=== PATIENT | female | born 1965 | race Asian ===

== ENCOUNTER 2016-05-04 11:47 | Emergency (ER) | payer MEDICAID, MEDICARE, SELFPAY ==
[~2016-05-04] VITALS: Ht 162.6 cm; Wt 65.0 kg
[~2016-05-04 11:47] MED LIST: ALBU8HFA IH; AMLO-512 PO; ARIP400S IM; DIVA500T69 PO; DULO20CA30 PO; FLUT1BLS PO; FOLI1 PO; LISI-661 PO; METF500T4 PO; MONT10TA21 PO; MULT-1238 PO; PANT40TA25 PO; SOLI5 PO; THIA100 PO; TOPI25 PO; ZIPR80CA2 PO
[2016-05-04 12:03] LABS: GLUCOSE,POINT OF CARE 111 MG/DL (70-110)
[2016-05-04 12:43] LABS: BASOPHILS % (AUTO) 0.7 % (0.0-2.0); EOSINOPHILS % (AUTO) 2.7 % (1.0-6.0); HEMATOCRIT 38.9 % (36-46); HEMOGLOBIN 12.9 g/dL (12.0-16.0); LYMPHOCYTES # (AUTO) 3.4 K/uL (1.0-4.8); LYMPHOCYTES % (AUTO) 41.1 % (22.0-44.0); MEAN CORPUSCULAR HEMOGLOBIN 30.6 pg (26.0-34.0); MEAN CORPUSCULAR HGB CONC 33.1 G/dL (31.0-37.0); MEAN CORPUSCULAR VOLUME 92 fL (80-100); MONOCYTES # (AUTO) 0.6 K/uL (0.1-1.0); MONOCYTES % (AUTO) 7.5 % (2.0-9.0); PLATELET COUNT (AUTO) 311 K/uL (150-450); RED CELL DISTRIBUTION WIDTH 14.6 % (11.5-14.5); WHITE BLOOD COUNT (AUTO) 8.2 K/uL (4.5-11.0)
[2016-05-04 12:57] LABS: ANION GAP 8 mmol/L (8-16); CALCIUM, TOTAL 8.8 mg/dL (8.8-10.5); CARBON DIOXIDE 29 mmol/L (22-29); CHLORIDE 104 mmol/L (98-107); CREATININE 0.74 mg/dL (0.60-1.30); GLOMERULAR FILTR. RATE CALC > 60 mL/min (>60); SODIUM SERUM 141 mmol/L (136-145); UREA NITROGEN, BLOOD 14 mg/dL (7-18)
[2016-05-04 13:03] LABS: ALANINE AMINOTRANSFERASE 21 U/L (12-78); ALBUMIN 3.4 g/dL (3.4-5.0); ASPARTATE AMINOTRANSFERASE 18 U/L (15-37); BILIRUBIN,TOTAL 0.4 mg/dL (0.1-1.0); TOTAL PROTEIN, SERUM 7.3 g/dL (6.4-8.2)
[2016-05-04 13:21] LABS: VALPROIC ACID < 3 mcg/mL (50-100)
[2016-05-04 14:50] VITALS: BP 140/74
== END 2016-05-04 14:55 | disposition home or self-care (01) ==
LOC: EMS 11:49
DX: F20.9 Schizophrenia, unspecified (principal); F31.9 Bipolar disorder, unspecified; E11.9 Type 2 diabetes mellitus without complications; I10 Essential (primary) hypertension; F15.10 Other stimulant abuse, uncomplicated; F17.210 Nicotine dependence, cigarettes, uncomplicated; Z88.8 Allergy status to other drugs, medicaments and biological substances
CPT/HCPCS: 36415; 80053; 80164; 80307; 82962; 85025; 99284; G0480

== ENCOUNTER 2016-05-30 00:45 | Emergency (ER) | payer MEDICARE, SELFPAY ==
[~2016-05-30] VITALS: Ht 157.5 cm; Wt 84.1 kg
[~2016-05-30 00:45] MED LIST changes: -ALBU8HFA IH; -AMLO-512 PO; -ARIP400S IM; -DULO20CA30 PO; -FLUT1BLS PO; -MONT10TA21 PO; -THIA100 PO; -TOPI25 PO
[2016-05-30 01:02] LABS: GLUCOSE,POINT OF CARE 103 MG/DL (70-110)
[2016-05-30 01:38] LABS: BASOPHILS # (AUTO) 0.08 K/uL (0.00-0.20); BASOPHILS % (AUTO) 0.8 % (0.0-2.0); EOSINOPHILS # (AUTO) 0.11 K/uL (0.00-0.70); EOSINOPHILS % (AUTO) 1.08 % (1.0-6.0); HEMATOCRIT 44.2 % (36-46); HEMOGLOBIN 14.6 g/dL (12.0-16.0); LYMPHOCYTES # (AUTO) 3.6 K/uL (1.0-4.8); LYMPHOCYTES % (AUTO) 36.8 % (22.0-44.0); MEAN CORPUSCULAR HEMOGLOBIN 31.1 pg (26.0-34.0); MEAN CORPUSCULAR VOLUME 94 fL (80-100); MONOCYTES # (AUTO) 0.9 K/uL (0.1-1.0); MONOCYTES % (AUTO) 9.3 % (2.0-9.0); NEUTROPHILS # (AUTO) 5.1 K/uL (1.8-7.7); PLATELET COUNT (AUTO) 342 K/uL (150-450); RED BLOOD CELL COUNT(AUTO) 4.69 MIL/uL (4.00-5.20); RED CELL DISTRIBUTION WIDTH 15.5 % (11.5-14.5); WHITE BLOOD COUNT (AUTO) 9.7 K/uL (4.5-11.0)
[2016-05-30 01:57] LABS: ALANINE AMINOTRANSFERASE 20 U/L (12-78); ALBUMIN 3.6 g/dL (3.4-5.0); ANION GAP 4 mmol/L (8-16); ASPARTATE AMINOTRANSFERASE 17 U/L (15-37); BILIRUBIN,TOTAL 0.2 mg/dL (0.1-1.0); CALCIUM, TOTAL 9.6 mg/dL (8.8-10.5); CARBON DIOXIDE 33 mmol/L (22-29); CHLORIDE 109 mmol/L (98-107); CREATININE 0.78 mg/dL (0.60-1.30); GLOMERULAR FILTR. RATE CALC > 60 mL/min (>60); POTASSIUM 4.7 mmol/L (3.5-5.1); SODIUM SERUM 146 mmol/L (136-145); TOTAL PROTEIN, SERUM 8.1 g/dL (6.4-8.2); UREA NITROGEN, BLOOD 13 mg/dL (7-18)
[2016-05-30 02:17] LABS: GLUCOSE,POINT OF CARE 128 MG/DL (70-110)
[2016-05-30 03:37] LABS: GLUCOSE,POINT OF CARE 70 MG/DL (70-110)
[2016-05-30 04:48] VITALS: BP 127/69
[2016-05-30 05:02] LABS: GLUCOSE,POINT OF CARE 112 MG/DL (70-110)
== END 2016-05-30 06:01 | disposition home or self-care (01) ==
LOC: EMS 00:47
DX: E11.649 Type 2 diabetes mellitus with hypoglycemia without coma (principal); F25.9 Schizoaffective disorder, unspecified; F31.9 Bipolar disorder, unspecified; I10 Essential (primary) hypertension; F17.210 Nicotine dependence, cigarettes, uncomplicated; Z88.8 Allergy status to other drugs, medicaments and biological substances
CPT/HCPCS: 36415; 80053; 82962; 84484; 85025; 99284; 99406; G0480

== ENCOUNTER 2016-06-07 11:15 | Inpatient (IN) | payer MEDICAID, MEDICARE ==
[~2016-06-07] VITALS: Ht 154.9 cm; Wt 69.1 kg
[~2016-06-07 11:15] MED LIST changes: -FOLI1 PO
[2016-06-07] MEDS ORDERED: SODIUM CHLORIDE 0.9% 1,000 ML IV ONE (12:15)
[2016-06-07 12:43] LABS: BASOPHILS # (AUTO) 0.02 K/uL (0.00-0.20); BASOPHILS % (AUTO) 0.3 % (0.0-2.0); EOSINOPHILS # (AUTO) 0.09 K/uL (0.00-0.70); EOSINOPHILS % (AUTO) 1.19 % (1.0-6.0); HEMATOCRIT 37.3 % (36-46); HEMOGLOBIN 12.6 g/dL (12.0-16.0); LYMPHOCYTES # (AUTO) 1.7 K/uL (1.0-4.8); LYMPHOCYTES % (AUTO) 21.8 % (22.0-44.0); MEAN CORPUSCULAR HEMOGLOBIN 31.3 pg (26.0-34.0); MEAN CORPUSCULAR HGB CONC 33.8 G/dL (31.0-37.0); MEAN CORPUSCULAR VOLUME 93 fL (80-100); MONOCYTES # (AUTO) 0.7 K/uL (0.1-1.0); MONOCYTES % (AUTO) 8.6 % (2.0-9.0); NEUTROPHILS # (AUTO) 5.2 K/uL (1.8-7.7); NEUTROPHILS % (AUTO) 68.2 % (40.0-70.0); PLATELET COUNT (AUTO) 279 K/uL (150-450); RED BLOOD CELL COUNT(AUTO) 4.03 MIL/uL (4.00-5.20); RED CELL DISTRIBUTION WIDTH 15.1 % (11.5-14.5); WHITE BLOOD COUNT (AUTO) 7.7 K/uL (4.5-11.0)
[2016-06-07] MEDS ORDERED: HydrOXYzine PAMOATE 50 MG CAPSULE PO PRN (12:45)
[2016-06-07] MEDS ORDERED: GuaiFENesin/D-METHORPHAN [SUGAR-FREE] 200-20MG/10 ML SYRUP UDCUP PO PRN (12:45)
[2016-06-07] MEDS ORDERED: ARIPiprazole ER SUSPENSION 400 MG PRE-FILLED DUAL CHAMBER SYRINGE IM ONE (12:45)
[2016-06-07] MEDS ORDERED: LOPERAMIDE HCL 2 MG CAPSULE PO PRN (12:45)
[2016-06-07] MEDS ORDERED: ACETAMINOPHEN 325 MG TABLET PO PRN (12:45)
[2016-06-07] MEDS ORDERED: MAGNESIUM HYDROXIDE SUSPENSION 30 ML UDCUP PO PRN (12:45)
[2016-06-07] MEDS ORDERED: TUBERCULIN, PURIFIED PROTEIN DERIVATIVE 5 TU/0.1 ML SYG ID ONE (12:45)
[2016-06-07] MEDS ORDERED: MAG HYDROX/AL HYDROX/SIMETH ES 30 ML SUSPENSION UDCUP PO PRN (12:45)
[2016-06-07] MEDS ORDERED: QUEtiapine FUMARATE 100 MG TABLET PO PRN (12:45)
[2016-06-07] MEDS ORDERED: ZOLPIDEM TARTRATE 10 MG TABLET PO PRN (12:45)
[2016-06-07 12:52] LABS: ANION GAP 5 mmol/L (8-16); CALCIUM, TOTAL 8.9 mg/dL (8.8-10.5); CARBON DIOXIDE 31 mmol/L (22-29); CHLORIDE 105 mmol/L (98-107); CREATININE 0.78 mg/dL (0.60-1.30); GLOMERULAR FILTR. RATE CALC > 60 mL/min (>60); POTASSIUM 3.9 mmol/L (3.5-5.1); SODIUM SERUM 141 mmol/L (136-145); UREA NITROGEN, BLOOD 10 mg/dL (7-18)
[2016-06-07 12:59] LABS: ALANINE AMINOTRANSFERASE 11 U/L (12-78); ASPARTATE AMINOTRANSFERASE 11 U/L (15-37); BILIRUBIN,TOTAL 0.1 mg/dL (0.1-1.0); TOTAL PROTEIN, SERUM 6.8 g/dL (6.4-8.2); VALPROIC ACID 53 mcg/mL (50-100)
[2016-06-07 13:05] LABS: SALICYLATE 2.7 mg/dL (2.8-20.0)
[2016-06-07 13:10] LABS: ACETAMINOPHEN < 2 mcg/mL (10-30)
[2016-06-07 13:52] LABS: CREATINE KINASE, TOTAL 74 U/L (26-192)
[2016-06-07 15:47] LABS: GLUCOSE,POINT OF CARE 72 MG/DL (70-110)
[2016-06-07 18:32] LABS: APPEARANCE,URINE CLEAR (CLEAR); GLUCOSE, URINE (UA) NEGATIVE (NEGATIVE); KETONES,URINE NEGATIVE (NEGATIVE); LEUKOCYTE ESTERASE ,URINE NEGATIVE (NEGATIVE); OCCULT BLOOD,URINE NEGATIVE (NEGATIVE); PH,URINE 6.5 (5.0-8.0); PROTEIN,URINE NEGATIVE (NEGATIVE)
[2016-06-07 18:36] LABS: RBC,URINE None Seen /HPF (0-2); SQUAMOUS EPITHELIAL CELL,UR Few /LPF (None Seen); WBC,URINE 0-2 /HPF (0-5)
[2016-06-07] MEDS: DIVALPROEX SODIUM 500 MG ER TABLET PO SCH (20:20)
[2016-06-07] MEDS: THIAMINE HCL 100 MG TABLET PO SCH (20:24)
[2016-06-07 20:35] VITALS: BP 121/72
[2016-06-07 20:57] LABS: GLUCOSE,POINT OF CARE 140 MG/DL (70-110)
[2016-06-07] MEDS ORDERED: DEXTROSE 50%-WATER 25 GM/50 ML SYRINGE IVP PRN (22:45)
[2016-06-08] MEDS ORDERED: MetFORMIN HCL 500 MG TABLET ONE (00:36)
[2016-06-08 05:12] LABS: GLUCOSE,POINT OF CARE 184 MG/DL (70-110)
[2016-06-08 06:06] LABS: BASOPHILS % (AUTO) 0.3 % (0.0-2.0); EOSINOPHILS % (AUTO) 0.4 % (1.0-6.0); HEMOGLOBIN 12.8 g/dL (12.0-16.0); LYMPHOCYTES # (AUTO) 1.5 K/uL (1.0-4.8); LYMPHOCYTES % (AUTO) 17.8 % (22.0-44.0); MEAN CORPUSCULAR HEMOGLOBIN 30.9 pg (26.0-34.0); MEAN CORPUSCULAR HGB CONC 32.7 G/dL (31.0-37.0); MEAN CORPUSCULAR VOLUME 94 fL (80-100); MONOCYTES # (AUTO) 0.8 K/uL (0.1-1.0); MONOCYTES % (AUTO) 8.9 % (2.0-9.0); NEUTROPHILS # (AUTO) 6.3 K/uL (1.8-7.7); NEUTROPHILS % (AUTO) 72.6 % (40.0-70.0); PLATELET COUNT (AUTO) 288 K/uL (150-450); RED BLOOD CELL COUNT(AUTO) 4.14 MIL/uL (4.00-5.20); WHITE BLOOD COUNT (AUTO) 8.6 K/uL (4.5-11.0)
[2016-06-08] MEDS: INSULIN ASPART 100 UNITS/ML SQ PRN ×2 (06:44→20:39)
[2016-06-08 06:45] LABS: ALANINE AMINOTRANSFERASE 12 U/L (12-78); ALBUMIN 2.7 g/dL (3.4-5.0); ANION GAP 6 mmol/L (8-16); ASPARTATE AMINOTRANSFERASE 12 U/L (15-37); BILIRUBIN,TOTAL 0.1 mg/dL (0.1-1.0); CALCIUM, TOTAL 8.3 mg/dL (8.8-10.5); CARBON DIOXIDE 29 mmol/L (22-29); CHLORIDE 104 mmol/L (98-107); CHOL/HDL RATIO 5.2 (3.9-5.7); CREATININE 0.76 mg/dL (0.60-1.30); GLOMERULAR FILTR. RATE CALC > 60 mL/min (>60); SODIUM SERUM 139 mmol/L (136-145); THYROID STIMULATING HORMONE 0.95 uIU/mL (0.36-3.74); TOTAL PROTEIN, SERUM 6.6 g/dL (6.4-8.2); UREA NITROGEN, BLOOD 12 mg/dL (7-18); VALPROIC ACID 50 mcg/mL (50-100)
[2016-06-08] MEDS: MetFORMIN HCL 500 MG TABLET PO SCH ×2 (06:55→16:52)
[2016-06-08 07:12] LABS: HEMOGLOBIN A1C 6.4 % (4.5-6.2)
[2016-06-08 08:16] VITALS: BP 154/78
[2016-06-08] MEDS: NICOTINE 21 MG/24 HOUR PATCH TD SCH (09:33)
[2016-06-08] MEDS: FOLIC ACID 1 MG TABLET PO SCH (09:34)
[2016-06-08] MEDS: PANTOPRAZOLE SODIUM 40 MG DR TABLET PO SCH (09:34)
[2016-06-08] MEDS: THIAMINE HCL 100 MG TABLET PO SCH ×2 (09:35→16:52)
[2016-06-08] MEDS: SOLIFENACIN SUCCINATE 5 MG TABLET PO SCH (09:35)
[2016-06-08] MEDS: MULTIVITAMINS WITH MINERALS, THERAPEUTIC TABLET PO SCH (09:35)
[2016-06-08] MEDS: ARIPiprazole 10 MG TABLET PO SCH (09:35)
[2016-06-08] MEDS: BACITRACIN 28.4 GM OINTMENT TP SCH ×2 (09:35→16:53)
[2016-06-08] MEDS: LISINOPRIL 10 MG TABLET PO SCH ×2 (09:35→16:51)
[2016-06-08 17:07] VITALS: BP 146/98
[2016-06-08] MEDS: DIVALPROEX SODIUM 500 MG ER TABLET PO SCH (20:04)
[2016-06-08] MEDS: LORazepam 2 MG TABLET PO PRN (20:43)
[2016-06-09 05:27] LABS: GLUCOSE,POINT OF CARE 181 MG/DL (70-110)
[2016-06-09] MEDS: MetFORMIN HCL 500 MG TABLET PO SCH ×2 (06:34→17:18)
[2016-06-09] MEDS: INSULIN ASPART 100 UNITS/ML SQ PRN ×4 (06:39→21:03)
[2016-06-09 08:00] VITALS: BP 155/78
[2016-06-09] MEDS: LISINOPRIL 20 MG TABLET PO SCH ×2 (08:15→17:16)
[2016-06-09] MEDS: FOLIC ACID 1 MG TABLET PO SCH (08:15)
[2016-06-09] MEDS: THIAMINE HCL 100 MG TABLET PO SCH ×2 (08:15→17:16)
[2016-06-09] MEDS: SOLIFENACIN SUCCINATE 5 MG TABLET PO SCH (08:15)
[2016-06-09] MEDS: ARIPiprazole 10 MG TABLET PO SCH (08:15)
[2016-06-09] MEDS: PANTOPRAZOLE SODIUM 40 MG DR TABLET PO SCH (08:15)
[2016-06-09] MEDS: MULTIVITAMINS WITH MINERALS, THERAPEUTIC TABLET PO SCH (08:15)
[2016-06-09] MEDS: NICOTINE 21 MG/24 HOUR PATCH TD SCH (08:16)
[2016-06-09] MEDS: BACITRACIN 28.4 GM OINTMENT TP SCH ×2 (09:59→17:19)
[2016-06-09 17:00] VITALS: BP 149/94
[2016-06-09] MEDS: LORazepam 2 MG TABLET PO PRN (19:21)
[2016-06-09] MEDS: DIVALPROEX SODIUM 500 MG ER TABLET PO SCH (20:32)
[2016-06-10 05:52] LABS: GLUCOSE,POINT OF CARE 153 MG/DL (70-110)
[2016-06-10] MEDS: MetFORMIN HCL 500 MG TABLET PO SCH ×2 (06:36→16:47)
[2016-06-10] MEDS: INSULIN ASPART 100 UNITS/ML SQ PRN ×4 (07:11→21:04)
[2016-06-10] MEDS: PANTOPRAZOLE SODIUM 40 MG DR TABLET PO SCH (08:15)
[2016-06-10] MEDS: THIAMINE HCL 100 MG TABLET PO SCH ×2 (08:15→16:47)
[2016-06-10] MEDS: MULTIVITAMINS WITH MINERALS, THERAPEUTIC TABLET PO SCH (08:15)
[2016-06-10] MEDS: FOLIC ACID 1 MG TABLET PO SCH (08:15)
[2016-06-10 08:16] VITALS: BP 126/80
[2016-06-10] MEDS: ARIPiprazole 10 MG TABLET PO SCH (08:16)
[2016-06-10] MEDS: SOLIFENACIN SUCCINATE 5 MG TABLET PO SCH (08:16)
[2016-06-10] MEDS: NICOTINE 21 MG/24 HOUR PATCH TD SCH (08:18)
[2016-06-10] MEDS: BACITRACIN 28.4 GM OINTMENT TP SCH ×2 (08:18→16:47)
[2016-06-10] MEDS: LISINOPRIL 20 MG TABLET PO SCH ×2 (08:18→16:47)
[2016-06-10 16:52] LABS: GLUCOSE,POINT OF CARE 163 MG/DL (70-110)
[2016-06-10 16:52] LABS: GLUCOSE,POINT OF CARE 159 MG/DL (70-110)
[2016-06-10 17:23] VITALS: BP 129/74
[2016-06-10] MEDS: DIVALPROEX SODIUM 500 MG ER TABLET PO SCH (20:02)
[2016-06-10 20:22] LABS: GLUCOSE,POINT OF CARE 212 MG/DL (70-110)
[2016-06-11 06:08] LABS: GLUCOSE,POINT OF CARE 131 MG/DL (70-110)
[2016-06-11] MEDS: MetFORMIN HCL 500 MG TABLET PO SCH ×2 (07:10→16:41)
[2016-06-11] MEDS: LISINOPRIL 20 MG TABLET PO SCH ×2 (08:08→16:41)
[2016-06-11] MEDS: MULTIVITAMINS WITH MINERALS, THERAPEUTIC TABLET PO SCH (08:08)
[2016-06-11] MEDS: BACITRACIN 28.4 GM OINTMENT TP SCH ×2 (08:08→16:41)
[2016-06-11] MEDS: PANTOPRAZOLE SODIUM 40 MG DR TABLET PO SCH (08:08)
[2016-06-11] MEDS: FOLIC ACID 1 MG TABLET PO SCH (08:09)
[2016-06-11] MEDS: DIVALPROEX SODIUM 500 MG ER TABLET PO SCH ×2 (08:09→20:31)
[2016-06-11] MEDS: NICOTINE 21 MG/24 HOUR PATCH TD SCH (08:09)
[2016-06-11] MEDS: THIAMINE HCL 100 MG TABLET PO SCH ×2 (08:10→16:41)
[2016-06-11] MEDS: ARIPiprazole 10 MG TABLET PO SCH (08:10)
[2016-06-11] MEDS: SOLIFENACIN SUCCINATE 5 MG TABLET PO SCH (08:10)
[2016-06-11 08:16] VITALS: BP 123/92
[2016-06-11 11:22] LABS: GLUCOSE,POINT OF CARE 173 MG/DL (70-110)
[2016-06-11] MEDS: INSULIN ASPART 100 UNITS/ML SQ PRN (13:05)
[2016-06-11 16:26] VITALS: BP 152/77
[2016-06-11 20:36] LABS: GLUCOSE,POINT OF CARE 163 MG/DL (70-110)
[2016-06-11 20:36] LABS: GLUCOSE,POINT OF CARE 196 MG/DL (70-110)
[2016-06-11] MEDS: LORazepam 2 MG TABLET PO PRN (23:24)
[2016-06-12 00:30] VITALS: BP 155/80
[2016-06-12 06:13] LABS: GLUCOSE,POINT OF CARE 125 MG/DL (70-110)
[2016-06-12] MEDS: MetFORMIN HCL 500 MG TABLET PO SCH (07:19)
[2016-06-12] MEDS: MULTIVITAMINS WITH MINERALS, THERAPEUTIC TABLET PO SCH (08:11)
[2016-06-12] MEDS: LISINOPRIL 20 MG TABLET PO SCH (08:11)
[2016-06-12] MEDS: FOLIC ACID 1 MG TABLET PO SCH (08:11)
[2016-06-12] MEDS: DIVALPROEX SODIUM 500 MG ER TABLET PO SCH (08:11)
[2016-06-12] MEDS: PANTOPRAZOLE SODIUM 40 MG DR TABLET PO SCH (08:11)
[2016-06-12] MEDS: THIAMINE HCL 100 MG TABLET PO SCH (08:11)
[2016-06-12] MEDS: LORazepam 2 MG TABLET PO PRN (08:12)
[2016-06-12] MEDS: SOLIFENACIN SUCCINATE 5 MG TABLET PO SCH (08:12)
[2016-06-12] MEDS: NICOTINE 21 MG/24 HOUR PATCH TD SCH (08:12)
[2016-06-12 08:19] VITALS: BP 150/89
[2016-06-12] MEDS: ARIPiprazole 10 MG TABLET PO SCH (08:19)
[2016-06-12] MEDS: BACITRACIN 28.4 GM OINTMENT TP SCH (08:20)
[2016-06-12] MEDS ORDERED: DIVA500T52 PO ×3 (11:23→12:24)
[2016-06-12] MEDS ORDERED: ARIP400S3 IM ×2 (11:23→12:24)
[2016-06-12] MEDS ORDERED: ARIP10TA14 PO ×2 (11:23→12:24)
[2016-06-12] MEDS ORDERED: LISI-662 PO (12:29)
[2016-07-05] MEDS ORDERED: ARIPiprazole ER SUSPENSION 400 MG PRE-FILLED DUAL CHAMBER SYRINGE IM SCH (09:00)
== END 2016-06-12 14:00 | disposition home or self-care (01) | DRG 885 ==
LOC: EMS 11:19 → 5N 19:17 → 3EX 19:17
PROVIDERS: ADMIT Psychiatry & Neurology Psychiatry; ATTEND Psychiatry & Neurology Psychiatry
DX: F25.0 Schizoaffective disorder, bipolar type (principal); T43.592A Poisoning by other antipsychotics and neuroleptics, intentional self-harm, initial encounter; X58.XXXA Exposure to other specified factors, initial encounter; F17.200 Nicotine dependence, unspecified, uncomplicated; J44.9 Chronic obstructive pulmonary disease, unspecified; I10 Essential (primary) hypertension; G40.909 Epilepsy, unspecified, not intractable, without status epilepticus; K21.9 Gastro-esophageal reflux disease without esophagitis; F19.10 Other psychoactive substance abuse, uncomplicated; E11.9 Type 2 diabetes mellitus without complications; F43.10 Post-traumatic stress disorder, unspecified; F22 Delusional disorders; E78.5 Hyperlipidemia, unspecified; Z53.29 Procedure and treatment not carried out because of patient's decision for other reasons; E66.9 Obesity, unspecified; Z68.28 Body mass index [BMI] 28.0-28.9, adult; Z91.19 Patient's noncompliance with other medical treatment and regimen; Y92.89 Other specified places as the place of occurrence of the external cause; Z83.3 Family history of diabetes mellitus; Z71.51 Drug abuse counseling and surveillance of drug abuser; Z59.9 Problem related to housing and economic circumstances, unspecified; Z71.6 Tobacco abuse counseling; Y93.89 Activity, other specified; Y99.8 Other external cause status; Z88.4 Allergy status to anesthetic agent; Z79.899 Other long term (current) drug therapy
CPT/HCPCS: 82962; 83036; 84439; 84443; 86592; 93005; 93041; 96360; 96361; 99291; G0480; G0481; J0401

== ENCOUNTER 2016-07-28 12:08 | Inpatient (IN) | payer MEDICARE, SELFPAY ==
[~2016-07-28] VITALS: Ht 154.9 cm; Wt 62.3 kg
[~2016-07-28 12:08] MED LIST changes: +ARIP10TA14 PO; +ARIP400S3 IM; +DIVA500T52 PO; -LISI-661 PO; +LISI-662 PO; -ZIPR80CA2 PO
[2016-07-28] MEDS ORDERED: OLANZapine 5 MG RAPDIS TABLET PO PRN (12:45)
[2016-07-28] MEDS ORDERED: ZOLPIDEM TARTRATE 10 MG TABLET PO PRN (12:45)
[2016-07-28] MEDS ORDERED: MAG HYDROX/AL HYDROX/SIMETH ES 30 ML SUSPENSION UDCUP PO PRN (12:45)
[2016-07-28] MEDS ORDERED: LOPERAMIDE HCL 2 MG CAPSULE PO PRN (12:45)
[2016-07-28] MEDS ORDERED: ACETAMINOPHEN 325 MG TABLET PO PRN ×2 (12:45→21:45)
[2016-07-28] MEDS ORDERED: MAGNESIUM HYDROXIDE SUSPENSION 30 ML UDCUP PO PRN (12:45)
[2016-07-28] MEDS ORDERED: PROMETHAZINE HCL 25 MG TABLET PO PRN (12:45)
[2016-07-28] MEDS ORDERED: GuaiFENesin/D-METHORPHAN [SUGAR-FREE] 200-20MG/10 ML SYRUP UDCUP PO PRN (12:45)
[2016-07-28] MEDS ORDERED: HydrOXYzine PAMOATE 50 MG CAPSULE PO PRN (12:45)
[2016-07-28 13:12] VITALS: BP 156/79
[2016-07-28] MEDS ORDERED: DIVA500T52 PO (13:47)
[2016-07-28 14:08] VITALS: BP 142/82
[2016-07-28 16:00] VITALS: BP 132/67
[2016-07-28 16:06] LABS: GLUCOSE,POINT OF CARE 94 MG/DL (70-110)
[2016-07-28] MEDS ORDERED: DEXTROSE 50%-WATER 25 GM/50 ML SYRINGE IVP PRN (16:15)
[2016-07-28] MEDS ORDERED: GLUCAGON,HUMAN RECOMBINANT 1 MG VIAL IM PRN (16:30)
[2016-07-28] MEDS: BACITRACIN 28.4 GM OINTMENT TP SCH (16:48)
[2016-07-28] MEDS: THIAMINE HCL 100 MG TABLET PO SCH (16:48)
[2016-07-28] MEDS: ZIPRASIDONE HCL 20 MG CAPSULE PO SCH (16:48)
[2016-07-28 20:26] LABS: GLUCOSE,POINT OF CARE 128 MG/DL (70-110)
[2016-07-28] MEDS: DIVALPROEX SODIUM 500 MG ER TABLET PO SCH (20:48)
[2016-07-28] MEDS ORDERED: IBUPROFEN 400 MG TABLET PO PRN (21:45)
[2016-07-29] MEDS: MetFORMIN HCL 500 MG TABLET PO SCH ×2 (06:23→17:12)
[2016-07-29] MEDS: ZIPRASIDONE HCL 20 MG CAPSULE PO SCH ×2 (06:23→17:12)
[2016-07-29 06:27] LABS: GLUCOSE,POINT OF CARE 109 MG/DL (70-110)
[2016-07-29 06:34] VITALS: BP 133/78
[2016-07-29 07:39] LABS: BASOPHILS % (AUTO) 0.4 % (0.0-2.0); HEMATOCRIT 43.6 % (36-46); LYMPHOCYTES # (AUTO) 2.3 K/uL (1.0-4.8); LYMPHOCYTES % (AUTO) 21.3 % (22.0-44.0); MEAN CORPUSCULAR HEMOGLOBIN 30.6 pg (26.0-34.0); MEAN CORPUSCULAR HGB CONC 32.2 G/dL (31.0-37.0); MEAN CORPUSCULAR VOLUME 95 fL (80-100); MONOCYTES # (AUTO) 0.5 K/uL (0.1-1.0); MONOCYTES % (AUTO) 4.2 % (2.0-9.0); NEUTROPHILS # (AUTO) 8.1 K/uL (1.8-7.7); NEUTROPHILS % (AUTO) 73.1 % (40.0-70.0); PLATELET COUNT (AUTO) 316 K/uL (150-450); RED BLOOD CELL COUNT(AUTO) 4.59 MIL/uL (4.00-5.20); RED CELL DISTRIBUTION WIDTH 13.7 % (11.5-14.5); WHITE BLOOD COUNT (AUTO) 11.1 K/uL (4.5-11.0)
[2016-07-29 07:59] LABS: HEMOGLOBIN A1C 6.3 % (4.5-6.2)
[2016-07-29 08:02] VITALS: BP 131/81
[2016-07-29 08:08] LABS: ALANINE AMINOTRANSFERASE 21 U/L (12-78); ALBUMIN 3.1 g/dL (3.4-5.0); ANION GAP 8 mmol/L (8-16); ASPARTATE AMINOTRANSFERASE 12 U/L (15-37); BILIRUBIN,TOTAL 0.2 mg/dL (0.1-1.0); CALCIUM, TOTAL 8.7 mg/dL (8.8-10.5); CARBON DIOXIDE 27 mmol/L (22-29); CHLORIDE 105 mmol/L (98-107); CHOL/HDL RATIO 5.5 (3.9-5.7); CREATININE 0.85 mg/dL (0.60-1.30); GLOMERULAR FILTR. RATE CALC > 60 mL/min (>60); POTASSIUM 3.9 mmol/L (3.5-5.1); SODIUM SERUM 140 mmol/L (136-145); THYROID STIMULATING HORMONE 0.56 uIU/mL (0.36-3.74); TOTAL PROTEIN, SERUM 6.9 g/dL (6.4-8.2); UREA NITROGEN, BLOOD 15 mg/dL (7-18); VALPROIC ACID 87 mcg/mL (50-100)
[2016-07-29] MEDS: MULTIVITAMINS WITH MINERALS, THERAPEUTIC TABLET PO SCH (08:08)
[2016-07-29] MEDS: THIAMINE HCL 100 MG TABLET PO SCH ×2 (08:08→17:12)
[2016-07-29] MEDS: FOLIC ACID 1 MG TABLET PO SCH (08:08)
[2016-07-29] MEDS: LISINOPRIL 20 MG TABLET PO SCH ×2 (08:08→17:13)
[2016-07-29] MEDS: PANTOPRAZOLE SODIUM 40 MG DR TABLET PO SCH (08:08)
[2016-07-29] MEDS: BACITRACIN 28.4 GM OINTMENT TP SCH ×2 (08:09→17:13)
[2016-07-29 08:58] LABS: APPEARANCE,URINE TURBID (CLEAR); GLUCOSE, URINE (UA) NEGATIVE (NEGATIVE); KETONES,URINE TRACE mg/dL (NEGATIVE); LEUKOCYTE ESTERASE ,URINE MODERATE (NEGATIVE); OCCULT BLOOD,URINE MODERATE (NEGATIVE); PH,URINE 6.5 (5.0-8.0); PROTEIN,URINE POS 1+ (NEGATIVE)
[2016-07-29 09:32] LABS: ADD UA MICROSCOPIC YES
[2016-07-29 09:49] LABS: CALCIUM OXALATE CRYSTALS,UR Moderate /LPF (None Seen); RBC,URINE 0-2 /HPF (0-2); SQUAMOUS EPITHELIAL CELL,UR Few /LPF (None Seen)
[2016-07-29] MEDS: ARIPiprazole 10 MG TABLET PO SCH (12:05)
[2016-07-29] MEDS: DIVALPROEX SODIUM 500 MG DR TABLET PO SCH (12:05)
[2016-07-29 13:07] LABS: GLUCOSE,POINT OF CARE 77 MG/DL (70-110)
[2016-07-29 13:07] LABS: GLUCOSE,POINT OF CARE 106 MG/DL (70-110)
[2016-07-29 16:18] VITALS: BP 138/72
[2016-07-29 16:52] LABS: GLUCOSE,POINT OF CARE 102 MG/DL (70-110)
[2016-07-29] MEDS ORDERED: BACITRACIN 28.4 GM OINTMENT TP SCH (17:00)
[2016-07-29] MEDS: SULFAMETHOX/TRIMETH DS 800-160 MG/TABLET PO SCH (17:12)
[2016-07-29] MEDS: DIVALPROEX SODIUM 500 MG ER TABLET PO SCH ×2 (20:09→20:16)
[2016-07-29] MEDS ORDERED: ACETAMINOPHEN 325 MG TABLET PO PRN (20:15)
[2016-07-29] MEDS ORDERED: IBUPROFEN 400 MG TABLET PO PRN (20:15)
[2016-07-30 05:45] VITALS: BP 124/72
[2016-07-30] MEDS: MetFORMIN HCL 500 MG TABLET PO SCH ×2 (06:07→16:24)
[2016-07-30] MEDS: ZIPRASIDONE HCL 20 MG CAPSULE PO SCH ×2 (06:07→16:24)
[2016-07-30 06:12] LABS: GLUCOSE,POINT OF CARE 85 MG/DL (70-110)
[2016-07-30 08:08] VITALS: BP 124/79
[2016-07-30] MEDS ORDERED: PANTOPRAZOLE SODIUM 40 MG DR TABLET PO SCH (09:00)
[2016-07-30] MEDS: DIVALPROEX SODIUM 500 MG DR TABLET PO SCH (09:04)
[2016-07-30] MEDS: SOLIFENACIN SUCCINATE 5 MG TABLET PO SCH (09:04)
[2016-07-30] MEDS: LISINOPRIL 20 MG TABLET PO SCH ×2 (09:04→16:24)
[2016-07-30] MEDS: FOLIC ACID 1 MG TABLET PO SCH (09:04)
[2016-07-30] MEDS: PANTOPRAZOLE SODIUM 40 MG DR TABLET PO SCH (09:04)
[2016-07-30] MEDS: SULFAMETHOX/TRIMETH DS 800-160 MG/TABLET PO SCH ×2 (09:04→16:24)
[2016-07-30] MEDS: MULTIVITAMINS WITH MINERALS, THERAPEUTIC TABLET PO SCH (09:04)
[2016-07-30] MEDS: BACITRACIN 28.4 GM OINTMENT TP SCH ×2 (09:05→16:24)
[2016-07-30] MEDS: ARIPiprazole 10 MG TABLET PO SCH (09:05)
[2016-07-30] MEDS: THIAMINE HCL 100 MG TABLET PO SCH ×2 (09:05→16:24)
[2016-07-30 11:27] LABS: GLUCOSE,POINT OF CARE 77 MG/DL (70-110)
[2016-07-30 16:07] LABS: GLUCOSE,POINT OF CARE 100 MG/DL (70-110)
[2016-07-30 16:24] VITALS: BP_SYST 111; BP_SYST 116; BP_DIAS 71; BP_DIAS 74
[2016-07-30] MEDS: DIVALPROEX SODIUM 500 MG ER TABLET PO SCH (20:34)
[2016-07-30 20:38] LABS: GLUCOSE,POINT OF CARE 104 MG/DL (70-110)
[2016-07-31 05:14] VITALS: BP 112/73
[2016-07-31] MEDS: ZIPRASIDONE HCL 20 MG CAPSULE PO SCH (06:51)
[2016-07-31] MEDS: MetFORMIN HCL 500 MG TABLET PO SCH ×2 (06:51→16:32)
[2016-07-31 08:02] LABS: GLUCOSE,POINT OF CARE 101 MG/DL (70-110)
[2016-07-31] MEDS: ARIPiprazole 10 MG TABLET PO SCH (08:21)
[2016-07-31] MEDS: SULFAMETHOX/TRIMETH DS 800-160 MG/TABLET PO SCH ×2 (08:21→16:32)
[2016-07-31] MEDS: FOLIC ACID 1 MG TABLET PO SCH (08:21)
[2016-07-31] MEDS: DIVALPROEX SODIUM 500 MG DR TABLET PO SCH (08:21)
[2016-07-31] MEDS: MULTIVITAMINS WITH MINERALS, THERAPEUTIC TABLET PO SCH (08:21)
[2016-07-31] MEDS: LISINOPRIL 20 MG TABLET PO SCH ×2 (08:21→16:32)
[2016-07-31] MEDS: THIAMINE HCL 100 MG TABLET PO SCH ×2 (08:21→16:32)
[2016-07-31] MEDS: SOLIFENACIN SUCCINATE 5 MG TABLET PO SCH (08:21)
[2016-07-31] MEDS: PANTOPRAZOLE SODIUM 40 MG DR TABLET PO SCH (08:21)
[2016-07-31] MEDS: BACITRACIN 28.4 GM OINTMENT TP SCH ×2 (08:22→16:33)
[2016-07-31 08:37] VITALS: BP 120/73
[2016-07-31 11:27] LABS: GLUCOSE,POINT OF CARE 112 MG/DL (70-110)
[2016-07-31 16:09] VITALS: BP 109/69
[2016-07-31 16:12] LABS: GLUCOSE,POINT OF CARE 170 MG/DL (70-110)
[2016-07-31] MEDS: ZIPRASIDONE HCL 40 MG CAPSULE PO SCH (16:32)
[2016-07-31] MEDS: INSULIN ASPART 100 UNITS/ML SQ PRN (16:34)
[2016-07-31] MEDS: DIVALPROEX SODIUM 500 MG ER TABLET PO SCH (20:47)
[2016-07-31 20:52] LABS: GLUCOSE,POINT OF CARE 123 MG/DL (70-110)
[2016-08-01 00:39] VITALS: BP 112/65
[2016-08-01] MEDS: ZIPRASIDONE HCL 40 MG CAPSULE PO SCH (06:02)
[2016-08-01] MEDS: MetFORMIN HCL 500 MG TABLET PO SCH ×2 (06:02→17:07)
[2016-08-01 06:42] LABS: GLUCOSE,POINT OF CARE 117 MG/DL (70-110)
[2016-08-01 08:15] VITALS: BP 140/82
[2016-08-01] MEDS: PANTOPRAZOLE SODIUM 40 MG DR TABLET PO SCH (08:47)
[2016-08-01] MEDS: FOLIC ACID 1 MG TABLET PO SCH (08:47)
[2016-08-01] MEDS: SULFAMETHOX/TRIMETH DS 800-160 MG/TABLET PO SCH ×2 (08:47→16:36)
[2016-08-01] MEDS: ARIPiprazole 10 MG TABLET PO SCH (08:47)
[2016-08-01] MEDS: NALTREXONE HCL 50 MG TABLET PO SCH (08:47)
[2016-08-01] MEDS: LISINOPRIL 20 MG TABLET PO SCH ×2 (08:47→16:36)
[2016-08-01] MEDS: SOLIFENACIN SUCCINATE 5 MG TABLET PO SCH (08:47)
[2016-08-01] MEDS: MULTIVITAMINS WITH MINERALS, THERAPEUTIC TABLET PO SCH (08:47)
[2016-08-01] MEDS: BACITRACIN 28.4 GM OINTMENT TP SCH ×2 (08:48→17:07)
[2016-08-01] MEDS: DIVALPROEX SODIUM 500 MG DR TABLET PO SCH (08:49)
[2016-08-01] MEDS: THIAMINE HCL 100 MG TABLET PO SCH ×2 (08:49→16:37)
[2016-08-01 11:02] LABS: GLUCOSE,POINT OF CARE 108 MG/DL (70-110)
[2016-08-01 16:15] VITALS: BP 142/75
[2016-08-01 16:27] LABS: GLUCOSE,POINT OF CARE 128 MG/DL (70-110)
[2016-08-01] MEDS: ZIPRASIDONE HCL 60 MG CAPSULE PO SCH (16:36)
[2016-08-01 20:33] LABS: GLUCOSE,POINT OF CARE 139 MG/DL (70-110)
[2016-08-01] MEDS: DIVALPROEX SODIUM 500 MG ER TABLET PO SCH (20:35)
[2016-08-02 00:57] VITALS: BP 122/66
[2016-08-02] MEDS: MetFORMIN HCL 500 MG TABLET PO SCH ×2 (06:11→16:41)
[2016-08-02 06:17] LABS: GLUCOSE,POINT OF CARE 126 MG/DL (70-110)
[2016-08-02] MEDS: ZIPRASIDONE HCL 60 MG CAPSULE PO SCH (06:41)
[2016-08-02 08:24] VITALS: BP 157/76
[2016-08-02] MEDS: DIVALPROEX SODIUM 500 MG DR TABLET PO SCH (08:33)
[2016-08-02] MEDS: MULTIVITAMINS WITH MINERALS, THERAPEUTIC TABLET PO SCH (08:33)
[2016-08-02] MEDS: LISINOPRIL 20 MG TABLET PO SCH ×2 (08:34→16:41)
[2016-08-02] MEDS: SOLIFENACIN SUCCINATE 5 MG TABLET PO SCH (08:34)
[2016-08-02] MEDS: SULFAMETHOX/TRIMETH DS 800-160 MG/TABLET PO SCH ×2 (08:34→16:41)
[2016-08-02] MEDS: FOLIC ACID 1 MG TABLET PO SCH (08:34)
[2016-08-02] MEDS: PANTOPRAZOLE SODIUM 40 MG DR TABLET PO SCH (08:34)
[2016-08-02] MEDS: NALTREXONE HCL 50 MG TABLET PO SCH (08:34)
[2016-08-02] MEDS: ARIPiprazole 10 MG TABLET PO SCH (08:34)
[2016-08-02] MEDS: THIAMINE HCL 100 MG TABLET PO SCH ×2 (08:34→16:41)
[2016-08-02] MEDS ORDERED: BACITRACIN 28.4 GM OINTMENT TP PRN (09:00)
[2016-08-02 10:00] VITALS: BP 143/71
[2016-08-02 11:11] LABS: GLUCOSE,POINT OF CARE 122 MG/DL (70-110)
[2016-08-02 16:07] VITALS: BP 137/76
[2016-08-02 16:17] LABS: GLUCOSE,POINT OF CARE 156 MG/DL (70-110)
[2016-08-02] MEDS: INSULIN ASPART 100 UNITS/ML SQ PRN (16:40)
[2016-08-02] MEDS: ZIPRASIDONE HCL 80 MG CAPSULE PO SCH (16:41)
[2016-08-02 20:27] LABS: GLUCOSE,POINT OF CARE 111 MG/DL (70-110)
[2016-08-02] MEDS: DIVALPROEX SODIUM 500 MG ER TABLET PO SCH (20:37)
[2016-08-03 06:00] VITALS: BP 133/71
[2016-08-03] MEDS: ZIPRASIDONE HCL 80 MG CAPSULE PO SCH ×2 (07:02→16:38)
[2016-08-03] MEDS: MetFORMIN HCL 500 MG TABLET PO SCH ×2 (07:02→16:38)
[2016-08-03 07:31] LABS: GLUCOSE,POINT OF CARE 111 MG/DL (70-110)
[2016-08-03 08:08] VITALS: BP 134/74
[2016-08-03 08:23] LABS: BASOPHILS % (AUTO) 0.5 % (0.0-2.0); EOSINOPHILS % (AUTO) 2.3 % (1.0-6.0); HEMATOCRIT 42.2 % (36-46); HEMOGLOBIN 14.1 g/dL (12.0-16.0); LYMPHOCYTES # (AUTO) 2.4 K/uL (1.0-4.8); LYMPHOCYTES % (AUTO) 52.6 % (22.0-44.0); MEAN CORPUSCULAR HEMOGLOBIN 31.2 pg (26.0-34.0); MEAN CORPUSCULAR HGB CONC 33.4 G/dL (31.0-37.0); MEAN CORPUSCULAR VOLUME 93 fL (80-100); MONOCYTES # (AUTO) 0.2 K/uL (0.1-1.0); MONOCYTES % (AUTO) 4.9 % (2.0-9.0); NEUTROPHILS # (AUTO) 1.8 K/uL (1.8-7.7); NEUTROPHILS % (AUTO) 39.7 % (40.0-70.0); PLATELET COUNT (AUTO) 241 K/uL (150-450); RED BLOOD CELL COUNT(AUTO) 4.52 MIL/uL (4.00-5.20); RED CELL DISTRIBUTION WIDTH 13.8 % (11.5-14.5); WHITE BLOOD COUNT (AUTO) 4.5 K/uL (4.5-11.0)
[2016-08-03] MEDS: THIAMINE HCL 100 MG TABLET PO SCH ×2 (09:05→16:38)
[2016-08-03] MEDS: SULFAMETHOX/TRIMETH DS 800-160 MG/TABLET PO SCH ×2 (09:06→16:38)
[2016-08-03] MEDS: MULTIVITAMINS WITH MINERALS, THERAPEUTIC TABLET PO SCH (09:06)
[2016-08-03] MEDS: FOLIC ACID 1 MG TABLET PO SCH (09:06)
[2016-08-03] MEDS: PANTOPRAZOLE SODIUM 40 MG DR TABLET PO SCH (09:06)
[2016-08-03] MEDS: DIVALPROEX SODIUM 500 MG DR TABLET PO SCH (09:06)
[2016-08-03] MEDS: NALTREXONE HCL 50 MG TABLET PO SCH (09:06)
[2016-08-03] MEDS: SOLIFENACIN SUCCINATE 5 MG TABLET PO SCH (09:06)
[2016-08-03] MEDS: LISINOPRIL 20 MG TABLET PO SCH ×2 (09:06→16:38)
[2016-08-03] MEDS: ARIPiprazole 10 MG TABLET PO SCH (09:06)
[2016-08-03 11:07] LABS: GLUCOSE,POINT OF CARE 159 MG/DL (70-110)
[2016-08-03] MEDS: INSULIN ASPART 100 UNITS/ML SQ PRN (11:35)
[2016-08-03] MEDS ORDERED: NALT50 PO (14:40)
[2016-08-03] MEDS ORDERED: DIVA500T35 PO (14:40)
[2016-08-03] MEDS ORDERED: ZIPR80CA2 PO (14:40)
[2016-08-03] MEDS ORDERED: DIVA500T52 PO (14:40)
[2016-08-03 16:16] VITALS: BP 121/73
[2016-08-03 16:33] LABS: GLUCOSE,POINT OF CARE 109 MG/DL (70-110)
[2016-08-03] MEDS ORDERED: IOVERSOL 350 MG/ML 100 ML VIAL ONE (17:20)
[2016-08-03] MEDS: DIVALPROEX SODIUM 500 MG ER TABLET PO SCH (20:36)
[2016-08-03 20:37] LABS: GLUCOSE,POINT OF CARE 119 MG/DL (70-110)
[2016-08-04] MEDS: LORazepam 2 MG TABLET PO PRN (00:47)
[2016-08-04 05:09] VITALS: BP 124/95
[2016-08-04 06:32] LABS: GLUCOSE,POINT OF CARE 121 MG/DL (70-110)
[2016-08-04] MEDS: MetFORMIN HCL 500 MG TABLET PO SCH ×2 (06:54→16:57)
[2016-08-04] MEDS: ZIPRASIDONE HCL 80 MG CAPSULE PO SCH ×2 (06:54→16:57)
[2016-08-04] MEDS: NALTREXONE HCL 50 MG TABLET PO SCH (08:25)
[2016-08-04] MEDS: SOLIFENACIN SUCCINATE 5 MG TABLET PO SCH (08:25)
[2016-08-04] MEDS: SULFAMETHOX/TRIMETH DS 800-160 MG/TABLET PO SCH ×2 (08:25→16:56)
[2016-08-04] MEDS: THIAMINE HCL 100 MG TABLET PO SCH ×2 (08:25→16:58)
[2016-08-04] MEDS: FOLIC ACID 1 MG TABLET PO SCH (08:25)
[2016-08-04] MEDS: DIVALPROEX SODIUM 500 MG DR TABLET PO SCH (08:25)
[2016-08-04] MEDS: LISINOPRIL 20 MG TABLET PO SCH ×2 (08:25→16:58)
[2016-08-04] MEDS: MULTIVITAMINS WITH MINERALS, THERAPEUTIC TABLET PO SCH (08:26)
[2016-08-04] MEDS: PANTOPRAZOLE SODIUM 40 MG DR TABLET PO SCH (08:26)
[2016-08-04 09:31] VITALS: BP 150/86
[2016-08-04] MEDS: INSULIN ASPART 100 UNITS/ML SQ PRN ×2 (11:15→20:15)
[2016-08-04 11:27] LABS: GLUCOSE,POINT OF CARE 151 MG/DL (70-110)
[2016-08-04 16:16] VITALS: BP 133/77
[2016-08-04 17:07] LABS: GLUCOSE,POINT OF CARE 100 MG/DL (70-110)
[2016-08-04] MEDS: DIVALPROEX SODIUM 500 MG ER TABLET PO SCH (20:10)
[2016-08-04 20:52] LABS: GLUCOSE,POINT OF CARE 145 MG/DL (70-110)
[2016-08-05 06:31] LABS: GLUCOSE,POINT OF CARE 94 MG/DL (70-110)
[2016-08-05 06:36] VITALS: BP 100/60
[2016-08-05] MEDS: ZIPRASIDONE HCL 80 MG CAPSULE PO SCH ×2 (06:49→16:25)
[2016-08-05] MEDS: MetFORMIN HCL 500 MG TABLET PO SCH ×2 (06:49→16:25)
[2016-08-05] MEDS ORDERED: DIVA500T35 PO (08:27)
[2016-08-05] MEDS ORDERED: DIVA500T52 PO (08:27)
[2016-08-05] MEDS ORDERED: ZIPR80CA2 PO (08:27)
[2016-08-05] MEDS ORDERED: SULF1TAB42 PO (08:27)
[2016-08-05] MEDS ORDERED: NALT50 PO (08:27)
[2016-08-05 08:39] VITALS: BP 129/82
[2016-08-05] MEDS: FOLIC ACID 1 MG TABLET PO SCH (08:45)
[2016-08-05] MEDS: NALTREXONE HCL 50 MG TABLET PO SCH (08:45)
[2016-08-05] MEDS: SULFAMETHOX/TRIMETH DS 800-160 MG/TABLET PO SCH ×2 (08:45→16:25)
[2016-08-05] MEDS: SOLIFENACIN SUCCINATE 5 MG TABLET PO SCH (08:45)
[2016-08-05] MEDS: PANTOPRAZOLE SODIUM 40 MG DR TABLET PO SCH (08:45)
[2016-08-05] MEDS: DIVALPROEX SODIUM 500 MG DR TABLET PO SCH (08:45)
[2016-08-05] MEDS: MULTIVITAMINS WITH MINERALS, THERAPEUTIC TABLET PO SCH (08:45)
[2016-08-05] MEDS: THIAMINE HCL 100 MG TABLET PO SCH ×2 (08:45→16:25)
[2016-08-05] MEDS: LISINOPRIL 20 MG TABLET PO SCH ×2 (08:46→16:25)
[2016-08-05] MEDS: INSULIN ASPART 100 UNITS/ML SQ PRN ×2 (11:24→20:56)
[2016-08-05 11:26] LABS: GLUCOSE,POINT OF CARE 172 MG/DL (70-110)
[2016-08-05 16:21] LABS: GLUCOSE,POINT OF CARE 137 MG/DL (70-110)
[2016-08-05 16:22] VITALS: BP 124/76
[2016-08-05 20:46] LABS: GLUCOSE,POINT OF CARE 209 MG/DL (70-110)
[2016-08-05] MEDS: DIVALPROEX SODIUM 500 MG ER TABLET PO SCH (20:57)
[2016-08-06 03:26] VITALS: BP 122/80
[2016-08-06] MEDS: MetFORMIN HCL 500 MG TABLET PO SCH ×2 (06:03→16:39)
[2016-08-06] MEDS: ZIPRASIDONE HCL 80 MG CAPSULE PO SCH ×2 (06:03→16:39)
[2016-08-06 06:22] LABS: GLUCOSE,POINT OF CARE 98 MG/DL (70-110)
[2016-08-06 08:07] VITALS: BP 121/76
[2016-08-06] MEDS: LISINOPRIL 20 MG TABLET PO SCH ×2 (08:53→16:39)
[2016-08-06] MEDS: MULTIVITAMINS WITH MINERALS, THERAPEUTIC TABLET PO SCH (08:53)
[2016-08-06] MEDS: SOLIFENACIN SUCCINATE 5 MG TABLET PO SCH (08:53)
[2016-08-06] MEDS: FOLIC ACID 1 MG TABLET PO SCH (08:53)
[2016-08-06] MEDS: NALTREXONE HCL 50 MG TABLET PO SCH (08:53)
[2016-08-06] MEDS: THIAMINE HCL 100 MG TABLET PO SCH ×2 (08:53→16:39)
[2016-08-06] MEDS: DIVALPROEX SODIUM 500 MG DR TABLET PO SCH (08:53)
[2016-08-06] MEDS: PANTOPRAZOLE SODIUM 40 MG DR TABLET PO SCH (08:53)
[2016-08-06] MEDS: INSULIN ASPART 100 UNITS/ML SQ PRN ×2 (11:40→16:40)
[2016-08-06 11:52] LABS: GLUCOSE,POINT OF CARE 175 MG/DL (70-110)
[2016-08-06 16:12] VITALS: BP 113/84
[2016-08-06 16:17] LABS: GLUCOSE,POINT OF CARE 146 MG/DL (70-110)
[2016-08-06 20:27] LABS: GLUCOSE,POINT OF CARE 125 MG/DL (70-110)
[2016-08-06] MEDS: DIVALPROEX SODIUM 500 MG ER TABLET PO SCH (20:38)
[2016-08-07 01:14] VITALS: BP 139/69
[2016-08-07] MEDS: ZIPRASIDONE HCL 80 MG CAPSULE PO SCH ×2 (06:31→16:37)
[2016-08-07] MEDS: MetFORMIN HCL 500 MG TABLET PO SCH ×2 (06:31→16:37)
[2016-08-07 06:43] LABS: GLUCOSE,POINT OF CARE 88 MG/DL (70-110)
[2016-08-07 08:08] VITALS: BP 114/76
[2016-08-07] MEDS: DIVALPROEX SODIUM 500 MG DR TABLET PO SCH (09:07)
[2016-08-07] MEDS: PANTOPRAZOLE SODIUM 40 MG DR TABLET PO SCH (09:07)
[2016-08-07] MEDS: NALTREXONE HCL 50 MG TABLET PO SCH (09:07)
[2016-08-07] MEDS: LISINOPRIL 20 MG TABLET PO SCH ×2 (09:07→16:36)
[2016-08-07] MEDS: MULTIVITAMINS WITH MINERALS, THERAPEUTIC TABLET PO SCH (09:08)
[2016-08-07] MEDS: SOLIFENACIN SUCCINATE 5 MG TABLET PO SCH (09:08)
[2016-08-07] MEDS: THIAMINE HCL 100 MG TABLET PO SCH (09:08)
[2016-08-07] MEDS: FOLIC ACID 1 MG TABLET PO SCH (09:08)
[2016-08-07 11:37] LABS: GLUCOSE,POINT OF CARE 125 MG/DL (70-110)
[2016-08-07 16:10] VITALS: BP 131/74
[2016-08-07 16:12] LABS: GLUCOSE,POINT OF CARE 113 MG/DL (70-110)
[2016-08-07 20:22] LABS: GLUCOSE,POINT OF CARE 149 MG/DL (70-110)
[2016-08-07] MEDS: DIVALPROEX SODIUM 500 MG ER TABLET PO SCH (20:36)
[2016-08-07] MEDS: INSULIN ASPART 100 UNITS/ML SQ PRN (20:38)
[2016-08-08 00:05] VITALS: BP 140/82
[2016-08-08] MEDS: LORazepam 2 MG TABLET PO PRN (00:19)
[2016-08-08] MEDS: MetFORMIN HCL 500 MG TABLET PO SCH ×2 (06:28→16:34)
[2016-08-08] MEDS: ZIPRASIDONE HCL 80 MG CAPSULE PO SCH (06:28)
[2016-08-08 06:32] LABS: GLUCOSE,POINT OF CARE 129 MG/DL (70-110)
[2016-08-08 08:30] VITALS: BP 116/68
[2016-08-08] MEDS: NALTREXONE HCL 50 MG TABLET PO SCH (09:00)
[2016-08-08] MEDS: MULTIVITAMINS WITH MINERALS, THERAPEUTIC TABLET PO SCH (09:00)
[2016-08-08] MEDS: DIVALPROEX SODIUM 500 MG DR TABLET PO SCH (09:00)
[2016-08-08] MEDS: LISINOPRIL 20 MG TABLET PO SCH ×2 (09:00→16:34)
[2016-08-08] MEDS: PANTOPRAZOLE SODIUM 40 MG DR TABLET PO SCH (09:00)
[2016-08-08] MEDS: SOLIFENACIN SUCCINATE 5 MG TABLET PO SCH (09:00)
[2016-08-08 11:42] LABS: GLUCOSE,POINT OF CARE 150 MG/DL (70-110)
[2016-08-08] MEDS: INSULIN ASPART 100 UNITS/ML SQ PRN (11:48)
[2016-08-08] MEDS ORDERED: DIVA500T52 PO ×2 (15:23→15:43)
[2016-08-08] MEDS ORDERED: ZIPR80CA2 PO ×2 (15:24→15:43)
[2016-08-08 16:16] LABS: GLUCOSE,POINT OF CARE 163 MG/DL (70-110)
[2016-08-08 16:18] VITALS: BP 140/81
[2016-08-08] MEDS ORDERED: DIVALPROEX SODIUM 500 MG ER TABLET PO SCH (21:00)
[2016-08-08] MEDS ORDERED: ZIPRASIDONE HCL 80 MG CAPSULE PO SCH (21:00)
== END 2016-08-08 17:17 | disposition home or self-care (01) | DRG 885 ==
LOC: B2X 13:11 → EDSTATUS 13:19
PROVIDERS: ADMIT Psychiatry & Neurology Psychiatry; ATTEND Psychiatry & Neurology Psychiatry
DX: F25.9 Schizoaffective disorder, unspecified (principal); G93.41 Metabolic encephalopathy; F19.20 Other psychoactive substance dependence, uncomplicated; F17.200 Nicotine dependence, unspecified, uncomplicated; J44.9 Chronic obstructive pulmonary disease, unspecified; Z88.4 Allergy status to anesthetic agent; E11.9 Type 2 diabetes mellitus without complications; I10 Essential (primary) hypertension; R10.13 Epigastric pain; E66.9 Obesity, unspecified; Z91.14 Patient's other noncompliance with medication regimen; D72.829 Elevated white blood cell count, unspecified; Z68.25 Body mass index [BMI] 25.0-25.9, adult
CPT/HCPCS: 82962; 83036; 84439; 84443; 86592; 87086

== ENCOUNTER 2016-09-26 13:00 | Inpatient (IN) | payer MEDICARE, SELFPAY ==
[~2016-09-26] VITALS: Ht 147.3 cm; Wt 63.1 kg
[~2016-09-26 13:00] MED LIST changes: -ARIP10TA14 PO; -ARIP400S3 IM; +DIVA500T35 PO; -DIVA500T69 PO; -MULT-1238 PO; +NALT50 PO; +ZIPR80CA2 PO
[2016-09-26 16:02] VITALS: BP 158/83
[2016-09-26] MEDS ORDERED: PROMETHAZINE HCL 25 MG TABLET PO PRN (16:15)
[2016-09-26] MEDS ORDERED: ACETAMINOPHEN 325 MG TABLET PO PRN (16:15)
[2016-09-26] MEDS ORDERED: MAGNESIUM HYDROXIDE SUSPENSION 30 ML UDCUP PO PRN (16:15)
[2016-09-26] MEDS ORDERED: MAG HYDROX/AL HYDROX/SIMETH ES 30 ML SUSPENSION UDCUP PO PRN (16:15)
[2016-09-26] MEDS ORDERED: GuaiFENesin/D-METHORPHAN [SUGAR-FREE] 200-20MG/10 ML SYRUP UDCUP PO PRN (16:15)
[2016-09-26] MEDS ORDERED: ZOLPIDEM TARTRATE 10 MG TABLET PO PRN (16:15)
[2016-09-26] MEDS ORDERED: LOPERAMIDE HCL 2 MG CAPSULE PO PRN (16:15)
[2016-09-26] MEDS ORDERED: QUEtiapine FUMARATE 100 MG TABLET PO PRN (16:15)
[2016-09-26] MEDS ORDERED: HydrOXYzine PAMOATE 50 MG CAPSULE PO PRN (16:15)
[2016-09-26] MEDS ORDERED: DIVA500T35 PO (16:27)
[2016-09-26] MEDS ORDERED: NALT50 PO (16:27)
[2016-09-26 17:33] VITALS: BP 151/82
[2016-09-26 17:59] LABS: GLUCOSE,POINT OF CARE 135 MG/DL (70-110)
[2016-09-26] MEDS ORDERED: LISINOPRIL 20 MG TABLET PO ONE (18:45)
[2016-09-26] MEDS ORDERED: GLUCAGON,HUMAN RECOMBINANT 1 MG VIAL IM PRN (18:45)
[2016-09-26 20:27] LABS: GLUCOSE,POINT OF CARE 131 MG/DL (70-110)
[2016-09-26] MEDS ORDERED: ARIPiprazole ER SUSPENSION 400 MG PRE-FILLED DUAL CHAMBER SYRINGE IM ONE (21:00)
[2016-09-26 21:21] VITALS: BP 136/83
[2016-09-27 06:17] VITALS: BP 137/71
[2016-09-27 06:47] LABS: GLUCOSE,POINT OF CARE 77 MG/DL (70-110)
[2016-09-27] MEDS: MetFORMIN HCL 500 MG TABLET PO SCH ×2 (06:50→16:40)
[2016-09-27 08:01] VITALS: BP 137/79
[2016-09-27 08:10] LABS: BASOPHILS % (AUTO) 0.6 % (0.0-2.0); EOSINOPHILS % (AUTO) 0.9 % (1.0-6.0); HEMOGLOBIN 14.5 g/dL (12.0-16.0); LYMPHOCYTES # (AUTO) 2.6 K/uL (1.0-4.8); MEAN CORPUSCULAR HEMOGLOBIN 32.2 pg (26.0-34.0); MEAN CORPUSCULAR HGB CONC 34.4 G/dL (31.0-37.0); MEAN CORPUSCULAR VOLUME 94 fL (80-100); MONOCYTES # (AUTO) 0.4 K/uL (0.1-1.0); MONOCYTES % (AUTO) 5.5 % (2.0-9.0); NEUTROPHILS # (AUTO) 3.3 K/uL (1.8-7.7); PLATELET COUNT (AUTO) 286 K/uL (150-450); RED BLOOD CELL COUNT(AUTO) 4.48 MIL/uL (4.00-5.20); RED CELL DISTRIBUTION WIDTH 15.8 % (11.5-14.5); WHITE BLOOD COUNT (AUTO) 6.4 K/uL (4.5-11.0)
[2016-09-27] MEDS: MULTIVITAMINS WITH MINERALS, THERAPEUTIC TABLET PO SCH (08:12)
[2016-09-27] MEDS: PANTOPRAZOLE SODIUM 40 MG DR TABLET PO SCH (08:12)
[2016-09-27] MEDS: LISINOPRIL 20 MG TABLET PO SCH ×2 (08:12→16:40)
[2016-09-27] MEDS: NICOTINE 21 MG/24 HOUR PATCH TD SCH (08:12)
[2016-09-27] MEDS: THIAMINE HCL 100 MG TABLET PO SCH ×2 (08:13→16:39)
[2016-09-27] MEDS: NALTREXONE HCL 50 MG TABLET PO SCH (08:13)
[2016-09-27] MEDS: FOLIC ACID 1 MG TABLET PO SCH (08:13)
[2016-09-27] MEDS: DIVALPROEX SODIUM 500 MG ER TABLET PO SCH ×2 (08:13→16:39)
[2016-09-27 08:42] LABS: ALANINE AMINOTRANSFERASE 21 U/L (12-78); ALBUMIN 3.7 g/dL (3.4-5.0); ANION GAP 9 mmol/L (8-16); ASPARTATE AMINOTRANSFERASE 23 U/L (15-37); BILIRUBIN,TOTAL 0.7 mg/dL (0.1-1.0); CALCIUM, TOTAL 9.3 mg/dL (8.8-10.5); CARBON DIOXIDE 27 mmol/L (22-29); CHLORIDE 104 mmol/L (98-107); CHOL/HDL RATIO 3.7 (3.9-5.7); CREATININE 0.76 mg/dL (0.60-1.30); GLOMERULAR FILTR. RATE CALC > 60 mL/min (>60); POTASSIUM 3.5 mmol/L (3.5-5.1); SODIUM SERUM 140 mmol/L (136-145); THYROID STIMULATING HORMONE 1.49 uIU/mL (0.36-3.74); TOTAL PROTEIN, SERUM 8.2 g/dL (6.4-8.2); UREA NITROGEN, BLOOD 10 mg/dL (7-18)
[2016-09-27 08:52] LABS: HEMOGLOBIN A1C 5.4 % (4.5-6.2)
[2016-09-27] MEDS ORDERED: ARIPiprazole 15 MG TABLET PO SCH (09:00)
[2016-09-27 09:16] LABS: APPEARANCE,URINE CLEAR (CLEAR); GLUCOSE, URINE (UA) NEGATIVE (NEGATIVE); KETONES,URINE NEGATIVE (NEGATIVE); LEUKOCYTE ESTERASE ,URINE NEGATIVE (NEGATIVE); OCCULT BLOOD,URINE NEGATIVE (NEGATIVE); PROTEIN,URINE NEGATIVE (NEGATIVE)
[2016-09-27] MEDS: LORazepam 2 MG TABLET PO PRN (09:16)
[2016-09-27 09:17] LABS: ADD UA MICROSCOPIC NO
[2016-09-27 10:58] LABS: GLUCOSE,POINT OF CARE 98 MG/DL (70-110)
[2016-09-27 16:01] VITALS: BP 139/74
[2016-09-27 16:58] LABS: GLUCOSE,POINT OF CARE 102 MG/DL (70-110)
[2016-09-27] MEDS ORDERED: ZIPRASIDONE HCL 20 MG CAPSULE PO SCH (17:00)
[2016-09-27] MEDS ORDERED: ZIPRASIDONE HCL 40 MG CAPSULE PO SCH (17:00)
[2016-09-27] MEDS ORDERED: ZIPRASIDONE HCL 20 MG CAPSULE PO ONE (17:15)
[2016-09-27 20:32] LABS: GLUCOSE,POINT OF CARE 101 MG/DL (70-110)
[2016-09-28] MEDS: MetFORMIN HCL 500 MG TABLET PO SCH ×2 (06:08→16:30)
[2016-09-28 06:24] VITALS: BP 136/83
[2016-09-28 06:27] LABS: GLUCOSE,POINT OF CARE 90 MG/DL (70-110)
[2016-09-28 08:04] VITALS: BP 144/76
[2016-09-28] MEDS: DIVALPROEX SODIUM 500 MG ER TABLET PO SCH ×2 (08:27→16:30)
[2016-09-28] MEDS: LISINOPRIL 20 MG TABLET PO SCH ×2 (08:28→16:30)
[2016-09-28] MEDS: MULTIVITAMINS WITH MINERALS, THERAPEUTIC TABLET PO SCH (08:28)
[2016-09-28] MEDS: PANTOPRAZOLE SODIUM 40 MG DR TABLET PO SCH (08:28)
[2016-09-28] MEDS: THIAMINE HCL 100 MG TABLET PO SCH ×2 (08:28→16:30)
[2016-09-28] MEDS: NALTREXONE HCL 50 MG TABLET PO SCH (08:28)
[2016-09-28] MEDS: FOLIC ACID 1 MG TABLET PO SCH (08:28)
[2016-09-28] MEDS: NICOTINE 21 MG/24 HOUR PATCH TD SCH (08:33)
[2016-09-28] MEDS ORDERED: ZIPRASIDONE HCL 40 MG CAPSULE PO SCH (09:00)
[2016-09-28 11:17] LABS: GLUCOSE,POINT OF CARE 107 MG/DL (70-110)
[2016-09-28] MEDS ORDERED: NALT50 PO (13:07)
[2016-09-28 16:02] VITALS: BP 148/80
[2016-09-28 16:27] LABS: GLUCOSE,POINT OF CARE 139 MG/DL (70-110)
[2016-09-28] MEDS: ZIPRASIDONE HCL 60 MG CAPSULE PO SCH (16:30)
[2016-09-28 20:33] LABS: GLUCOSE,POINT OF CARE 121 MG/DL (70-110)
[2016-09-28 21:19] VITALS: BP 137/79
[2016-09-28] MEDS: LORazepam 2 MG TABLET PO PRN (21:19)
[2016-09-29 06:20] VITALS: BP 120/66
[2016-09-29] MEDS: MetFORMIN HCL 500 MG TABLET PO SCH ×2 (06:45→16:59)
[2016-09-29 06:47] LABS: GLUCOSE,POINT OF CARE 78 MG/DL (70-110)
[2016-09-29] MEDS: ZIPRASIDONE HCL 60 MG CAPSULE PO SCH (06:49)
[2016-09-29 08:01] VITALS: BP 159/88
[2016-09-29] MEDS: DIVALPROEX SODIUM 500 MG ER TABLET PO SCH ×2 (08:04→17:00)
[2016-09-29] MEDS: NALTREXONE HCL 50 MG TABLET PO SCH (08:04)
[2016-09-29] MEDS: MULTIVITAMINS WITH MINERALS, THERAPEUTIC TABLET PO SCH (08:04)
[2016-09-29] MEDS: FOLIC ACID 1 MG TABLET PO SCH (08:04)
[2016-09-29] MEDS: LISINOPRIL 20 MG TABLET PO SCH ×2 (08:04→16:59)
[2016-09-29] MEDS: PANTOPRAZOLE SODIUM 40 MG DR TABLET PO SCH (08:04)
[2016-09-29] MEDS: NICOTINE 21 MG/24 HOUR PATCH TD SCH (08:04)
[2016-09-29] MEDS: THIAMINE HCL 100 MG TABLET PO SCH ×2 (08:04→17:00)
[2016-09-29 09:30] VITALS: BP 129/77
[2016-09-29 16:02] VITALS: BP 125/85
[2016-09-29 16:43] LABS: GLUCOSE,POINT OF CARE 95 MG/DL (70-110)
[2016-09-29 16:43] LABS: GLUCOSE,POINT OF CARE 88 MG/DL (70-110)
[2016-09-29] MEDS: ZIPRASIDONE HCL 80 MG CAPSULE PO SCH (16:59)
[2016-09-29] MEDS: LORazepam 2 MG TABLET PO PRN (20:51)
[2016-09-29 21:23] LABS: GLUCOSE,POINT OF CARE 108 MG/DL (70-110)
[2016-09-30 06:18] VITALS: BP 139/74
[2016-09-30 06:33] LABS: GLUCOSE,POINT OF CARE 103 MG/DL (70-110)
[2016-09-30] MEDS: ZIPRASIDONE HCL 80 MG CAPSULE PO SCH ×2 (06:34→16:57)
[2016-09-30] MEDS: MetFORMIN HCL 500 MG TABLET PO SCH ×2 (06:34→16:57)
[2016-09-30 08:03] VITALS: BP 141/78
[2016-09-30] MEDS: DIVALPROEX SODIUM 500 MG ER TABLET PO SCH ×2 (09:00→16:57)
[2016-09-30] MEDS: THIAMINE HCL 100 MG TABLET PO SCH ×2 (09:00→16:57)
[2016-09-30] MEDS: FOLIC ACID 1 MG TABLET PO SCH (09:00)
[2016-09-30] MEDS: LISINOPRIL 20 MG TABLET PO SCH ×2 (09:00→16:57)
[2016-09-30] MEDS: NICOTINE 21 MG/24 HOUR PATCH TD SCH (09:00)
[2016-09-30] MEDS: MULTIVITAMINS WITH MINERALS, THERAPEUTIC TABLET PO SCH (09:00)
[2016-09-30] MEDS: PANTOPRAZOLE SODIUM 40 MG DR TABLET PO SCH (09:00)
[2016-09-30] MEDS: SOLIFENACIN SUCCINATE 5 MG TABLET PO SCH (09:01)
[2016-09-30] MEDS: NALTREXONE HCL 50 MG TABLET PO SCH (09:01)
[2016-09-30 11:27] LABS: GLUCOSE,POINT OF CARE 130 MG/DL (70-110)
[2016-09-30 16:02] VITALS: BP 130/70
[2016-09-30 16:28] LABS: GLUCOSE,POINT OF CARE 97 MG/DL (70-110)
[2016-09-30 20:53] LABS: GLUCOSE,POINT OF CARE 137 MG/DL (70-110)
[2016-09-30] MEDS: LORazepam 2 MG TABLET PO PRN (21:15)
[2016-10-01 06:07] LABS: GLUCOSE,POINT OF CARE 73 MG/DL (70-110)
[2016-10-01 06:25] VITALS: BP 138/76
[2016-10-01] MEDS: ZIPRASIDONE HCL 80 MG CAPSULE PO SCH ×2 (06:36→16:50)
[2016-10-01] MEDS: MetFORMIN HCL 500 MG TABLET PO SCH ×2 (06:36→16:50)
[2016-10-01 08:24] VITALS: BP 140/76
[2016-10-01] MEDS: MULTIVITAMINS WITH MINERALS, THERAPEUTIC TABLET PO SCH (08:34)
[2016-10-01] MEDS: NALTREXONE HCL 50 MG TABLET PO SCH (08:34)
[2016-10-01] MEDS: PANTOPRAZOLE SODIUM 40 MG DR TABLET PO SCH (08:34)
[2016-10-01] MEDS: DIVALPROEX SODIUM 500 MG ER TABLET PO SCH ×2 (08:34→16:51)
[2016-10-01] MEDS: FOLIC ACID 1 MG TABLET PO SCH (08:34)
[2016-10-01] MEDS: THIAMINE HCL 100 MG TABLET PO SCH ×2 (08:34→16:50)
[2016-10-01] MEDS: SOLIFENACIN SUCCINATE 5 MG TABLET PO SCH (08:34)
[2016-10-01] MEDS: LISINOPRIL 20 MG TABLET PO SCH ×2 (08:34→16:32)
[2016-10-01] MEDS: NICOTINE 21 MG/24 HOUR PATCH TD SCH (08:34)
[2016-10-01 11:32] LABS: GLUCOSE,POINT OF CARE 76 MG/DL (70-110)
[2016-10-01 16:22] LABS: GLUCOSE,POINT OF CARE 154 MG/DL (70-110)
[2016-10-01 16:32] VITALS: BP 161/69
[2016-10-01] MEDS: INSULIN ASPART 100 UNITS/ML SQ PRN (16:48)
[2016-10-01 17:46] VITALS: BP 157/79
[2016-10-01] MEDS: LORazepam 2 MG TABLET PO PRN (17:47)
[2016-10-01 19:37] VITALS: BP 139/77
[2016-10-01 20:27] LABS: GLUCOSE,POINT OF CARE 129 MG/DL (70-110)
[2016-10-02 01:56] VITALS: BP 139/76
[2016-10-02 06:07] LABS: GLUCOSE,POINT OF CARE 101 MG/DL (70-110)
[2016-10-02] MEDS: MetFORMIN HCL 500 MG TABLET PO SCH ×2 (06:26→16:16)
[2016-10-02] MEDS: ZIPRASIDONE HCL 80 MG CAPSULE PO SCH ×2 (06:41→16:16)
[2016-10-02 08:06] VITALS: BP 151/72
[2016-10-02] MEDS: DIVALPROEX SODIUM 500 MG ER TABLET PO SCH (08:14)
[2016-10-02] MEDS: THIAMINE HCL 100 MG TABLET PO SCH ×2 (08:14→16:16)
[2016-10-02] MEDS: PANTOPRAZOLE SODIUM 40 MG DR TABLET PO SCH (08:15)
[2016-10-02] MEDS: SOLIFENACIN SUCCINATE 5 MG TABLET PO SCH (08:15)
[2016-10-02] MEDS: NICOTINE 21 MG/24 HOUR PATCH TD SCH (08:15)
[2016-10-02] MEDS: MULTIVITAMINS WITH MINERALS, THERAPEUTIC TABLET PO SCH (08:15)
[2016-10-02] MEDS: NALTREXONE HCL 50 MG TABLET PO SCH (08:15)
[2016-10-02] MEDS: FOLIC ACID 1 MG TABLET PO SCH (08:15)
[2016-10-02] MEDS: LISINOPRIL 20 MG TABLET PO SCH ×2 (08:15→16:16)
[2016-10-02 11:07] LABS: GLUCOSE,POINT OF CARE 121 MG/DL (70-110)
[2016-10-02 13:14] VITALS: BP 137/76
[2016-10-02 16:13] VITALS: BP 144/82
[2016-10-02] MEDS: INSULIN ASPART 100 UNITS/ML SQ PRN (16:18)
[2016-10-02 16:28] LABS: GLUCOSE,POINT OF CARE 191 MG/DL (70-110)
[2016-10-02] MEDS: LORazepam 2 MG TABLET PO PRN (20:04)
[2016-10-02 20:48] LABS: GLUCOSE,POINT OF CARE 107 MG/DL (70-110)
[2016-10-03 06:42] VITALS: BP 136/96
[2016-10-03 06:43] LABS: GLUCOSE,POINT OF CARE 96 MG/DL (70-110)
[2016-10-03] MEDS: MetFORMIN HCL 500 MG TABLET PO SCH ×2 (07:04→16:34)
[2016-10-03] MEDS: ZIPRASIDONE HCL 80 MG CAPSULE PO SCH ×2 (07:04→16:33)
[2016-10-03 08:13] VITALS: BP 157/80
[2016-10-03] MEDS: PANTOPRAZOLE SODIUM 40 MG DR TABLET PO SCH (08:29)
[2016-10-03] MEDS: LISINOPRIL 20 MG TABLET PO SCH ×2 (08:29→16:34)
[2016-10-03] MEDS: SOLIFENACIN SUCCINATE 5 MG TABLET PO SCH (08:29)
[2016-10-03] MEDS: DIVALPROEX SODIUM 500 MG ER TABLET PO SCH (08:29)
[2016-10-03] MEDS: NALTREXONE HCL 50 MG TABLET PO SCH (08:29)
[2016-10-03] MEDS: FOLIC ACID 1 MG TABLET PO SCH (08:29)
[2016-10-03] MEDS: THIAMINE HCL 100 MG TABLET PO SCH ×2 (08:29→16:33)
[2016-10-03] MEDS: MULTIVITAMINS WITH MINERALS, THERAPEUTIC TABLET PO SCH (08:29)
[2016-10-03] MEDS: NICOTINE 21 MG/24 HOUR PATCH TD SCH (08:30)
[2016-10-03 10:52] LABS: GLUCOSE,POINT OF CARE 121 MG/DL (70-110)
[2016-10-03 16:08] VITALS: BP 110/63
[2016-10-03 16:42] LABS: GLUCOSE,POINT OF CARE 139 MG/DL (70-110)
[2016-10-03 20:27] LABS: GLUCOSE,POINT OF CARE 184 MG/DL (70-110)
[2016-10-03] MEDS: INSULIN ASPART 100 UNITS/ML SQ PRN (21:25)
[2016-10-04 04:46] VITALS: BP 166/85
[2016-10-04] MEDS: MetFORMIN HCL 500 MG TABLET PO SCH ×2 (06:42→16:41)
[2016-10-04] MEDS: ZIPRASIDONE HCL 80 MG CAPSULE PO SCH ×2 (06:43→16:41)
[2016-10-04 07:17] LABS: GLUCOSE,POINT OF CARE 113 MG/DL (70-110)
[2016-10-04 08:01] VITALS: BP 155/89
[2016-10-04] MEDS: MULTIVITAMINS WITH MINERALS, THERAPEUTIC TABLET PO SCH (08:06)
[2016-10-04] MEDS: PANTOPRAZOLE SODIUM 40 MG DR TABLET PO SCH (08:06)
[2016-10-04] MEDS: LISINOPRIL 20 MG TABLET PO SCH ×2 (08:06→16:41)
[2016-10-04] MEDS: DIVALPROEX SODIUM 500 MG ER TABLET PO SCH (08:06)
[2016-10-04] MEDS: THIAMINE HCL 100 MG TABLET PO SCH ×2 (08:06→16:41)
[2016-10-04] MEDS: FOLIC ACID 1 MG TABLET PO SCH (08:07)
[2016-10-04] MEDS: NALTREXONE HCL 50 MG TABLET PO SCH (08:07)
[2016-10-04] MEDS: SOLIFENACIN SUCCINATE 5 MG TABLET PO SCH (08:07)
[2016-10-04] MEDS: NICOTINE 21 MG/24 HOUR PATCH TD SCH (08:07)
[2016-10-04 09:30] VITALS: BP 136/79
[2016-10-04 11:13] LABS: GLUCOSE,POINT OF CARE 136 MG/DL (70-110)
[2016-10-04 16:12] VITALS: BP 140/86
[2016-10-04 16:18] LABS: GLUCOSE,POINT OF CARE 188 MG/DL (70-110)
[2016-10-04] MEDS: INSULIN ASPART 100 UNITS/ML SQ PRN (16:35)
[2016-10-04 20:32] LABS: GLUCOSE,POINT OF CARE 112 MG/DL (70-110)
[2016-10-04] MEDS: LORazepam 2 MG TABLET PO PRN (22:02)
[2016-10-05 00:33] VITALS: BP 143/76
[2016-10-05 06:17] LABS: GLUCOSE,POINT OF CARE 128 MG/DL (70-110)
[2016-10-05] MEDS: ZIPRASIDONE HCL 80 MG CAPSULE PO SCH ×2 (06:35→16:38)
[2016-10-05] MEDS: MetFORMIN HCL 500 MG TABLET PO SCH ×2 (06:36→16:38)
[2016-10-05 08:08] VITALS: BP 179/88
[2016-10-05] MEDS: FOLIC ACID 1 MG TABLET PO SCH (08:10)
[2016-10-05] MEDS: DIVALPROEX SODIUM 500 MG ER TABLET PO SCH (08:10)
[2016-10-05] MEDS: NALTREXONE HCL 50 MG TABLET PO SCH (08:10)
[2016-10-05] MEDS: SOLIFENACIN SUCCINATE 5 MG TABLET PO SCH (08:10)
[2016-10-05] MEDS: PANTOPRAZOLE SODIUM 40 MG DR TABLET PO SCH (08:10)
[2016-10-05] MEDS: THIAMINE HCL 100 MG TABLET PO SCH ×2 (08:10→16:38)
[2016-10-05] MEDS: MULTIVITAMINS WITH MINERALS, THERAPEUTIC TABLET PO SCH (08:11)
[2016-10-05] MEDS: NICOTINE 21 MG/24 HOUR PATCH TD SCH (08:11)
[2016-10-05] MEDS: LISINOPRIL 20 MG TABLET PO SCH ×2 (08:11→16:38)
[2016-10-05 09:30] VITALS: BP 140/86
[2016-10-05] MEDS: INSULIN ASPART 100 UNITS/ML SQ PRN ×2 (11:01→20:40)
[2016-10-05 11:03] LABS: GLUCOSE,POINT OF CARE 189 MG/DL (70-110)
[2016-10-05] MEDS ORDERED: ZIPR80CA2 PO (14:12)
[2016-10-05] MEDS ORDERED: DIVA500T52 PO (14:12)
[2016-10-05 16:00] VITALS: BP 112/70
[2016-10-05 16:18] LABS: GLUCOSE,POINT OF CARE 92 MG/DL (70-110)
[2016-10-05 20:33] LABS: GLUCOSE,POINT OF CARE 215 MG/DL (70-110)
[2016-10-06] MEDS: LORazepam 2 MG TABLET PO PRN (04:13)
[2016-10-06 06:12] VITALS: BP 147/87
[2016-10-06] MEDS: ZIPRASIDONE HCL 80 MG CAPSULE PO SCH (06:12)
[2016-10-06] MEDS: MetFORMIN HCL 500 MG TABLET PO SCH (06:13)
[2016-10-06 06:17] LABS: GLUCOSE,POINT OF CARE 81 MG/DL (70-110)
[2016-10-06 08:37] VITALS: BP 148/94
[2016-10-06] MEDS: MULTIVITAMINS WITH MINERALS, THERAPEUTIC TABLET PO SCH (08:42)
[2016-10-06] MEDS: THIAMINE HCL 100 MG TABLET PO SCH (08:43)
[2016-10-06] MEDS: SOLIFENACIN SUCCINATE 5 MG TABLET PO SCH (08:43)
[2016-10-06] MEDS: PANTOPRAZOLE SODIUM 40 MG DR TABLET PO SCH (08:43)
[2016-10-06] MEDS: FOLIC ACID 1 MG TABLET PO SCH (08:43)
[2016-10-06] MEDS: LISINOPRIL 20 MG TABLET PO SCH (08:43)
[2016-10-06] MEDS: NALTREXONE HCL 50 MG TABLET PO SCH (08:43)
[2016-10-06] MEDS: DIVALPROEX SODIUM 500 MG ER TABLET PO SCH (08:43)
[2016-10-06] MEDS: NICOTINE 21 MG/24 HOUR PATCH TD SCH (08:44)
[2016-10-06] MEDS ORDERED: SOLI5 PO (10:04)
[2016-10-06] MEDS ORDERED: MULT-1203 PO (10:04)
[2016-10-06] MEDS ORDERED: METF500T4 PO (10:04)
[2016-10-06] MEDS ORDERED: SOLI10TA PO (10:04)
[2016-10-06] MEDS ORDERED: PANT20TA PO (10:04)
[2016-10-06] MEDS ORDERED: LISI-662 PO (10:04)
[2016-10-06] MEDS ORDERED: THIA100T13 PO (10:04)
[2016-10-06] MEDS ORDERED: FOLI1TAB15 PO (10:04)
[2016-10-06 12:12] LABS: GLUCOSE,POINT OF CARE 134 MG/DL (70-110)
[2016-10-24] MEDS ORDERED: ARIPiprazole ER SUSPENSION 400 MG PRE-FILLED DUAL CHAMBER SYRINGE IM SCH (09:00)
== END 2016-10-06 15:40 | disposition home or self-care (01) | DRG 885 ==
LOC: B2X 16:20 → EDSTATUS 16:26
PROVIDERS: ADMIT Psychiatry & Neurology Psychiatry; ATTEND Psychiatry & Neurology Psychiatry
PROC: GZ51ZZZ Individual Psychotherapy, Behavioral (ICD-10-PCS; principal; 2016-09-26)
DX: F25.0 Schizoaffective disorder, bipolar type (principal); F17.200 Nicotine dependence, unspecified, uncomplicated; Z88.4 Allergy status to anesthetic agent; E11.9 Type 2 diabetes mellitus without complications; F15.90 Other stimulant use, unspecified, uncomplicated; R15.9 Full incontinence of feces; I10 Essential (primary) hypertension; R19.7 Diarrhea, unspecified; J44.9 Chronic obstructive pulmonary disease, unspecified; K21.9 Gastro-esophageal reflux disease without esophagitis; L81.9 Disorder of pigmentation, unspecified; R32 Unspecified urinary incontinence; Z68.29 Body mass index [BMI] 29.0-29.9, adult; Z83.3 Family history of diabetes mellitus; Z91.14 Patient's other noncompliance with medication regimen; Z59.9 Problem related to housing and economic circumstances, unspecified; Z65.3 Problems related to other legal circumstances; Z72.89 Other problems related to lifestyle; Z87.898 Personal history of other specified conditions; Z59.0 Homelessness; Z79.899 Other long term (current) drug therapy
CPT/HCPCS: 82962; 83036; 84439; 84443; 86592; 93005; J0401

== ENCOUNTER 2016-10-09 21:33 | Emergency (ER) | payer MEDICARE ==
[~2016-10-09] VITALS: Ht 154.9 cm; Wt 72.0 kg
[~2016-10-09 21:33] MED LIST changes: -DIVA500T35 PO; +FOLI1TAB15 PO; +MULT-1203 PO; +SOLI10TA PO; -SOLI5 PO; +THIA100T13 PO
[2016-10-09 22:33] LABS: GLUCOSE,POINT OF CARE 151 MG/DL (70-110)
[2016-10-10] MEDS ORDERED: ZIPRASIDONE HCL 40 MG CAPSULE PO ONE (01:15)
[2016-10-10] MEDS ORDERED: LORazepam 1 MG TABLET PO ONE (01:15)
[2016-10-10 01:26] VITALS: BP 126/74
[2016-10-10] MEDS ORDERED: ZIPRASIDONE HCL 80 MG CAPSULE PO ONE (01:45)
== END 2016-10-10 01:45 | disposition home or self-care (01) ==
LOC: EMS 21:36
DX: Z76.0 Encounter for issue of repeat prescription (principal); F20.0 Paranoid schizophrenia; F17.210 Nicotine dependence, cigarettes, uncomplicated; F31.9 Bipolar disorder, unspecified; E11.9 Type 2 diabetes mellitus without complications; I10 Essential (primary) hypertension; Z88.8 Allergy status to other drugs, medicaments and biological substances
CPT/HCPCS: 82962; 99284; 99406

== ENCOUNTER 2016-12-13 13:10 | Inpatient (IN) | payer MEDICARE ==
[~2016-12-13] VITALS: Ht 154.9 cm; Wt 70.1 kg
[~2016-12-13 13:10] MED LIST changes: -MULT-1203 PO; -NALT50 PO; +NALT50TA6 PO; -THIA100T13 PO
[2016-12-13] MEDS ORDERED: ZOLPIDEM TARTRATE 10 MG TABLET PO PRN (13:15)
[2016-12-13] MEDS ORDERED: QUEtiapine FUMARATE 100 MG TABLET PO PRN (13:15)
[2016-12-13 13:30] VITALS: BP 122/90
[2016-12-13] MEDS: LORazepam 2 MG TABLET PO PRN (14:51)
[2016-12-13 15:02] LABS: GLUCOSE,POINT OF CARE 96 MG/DL (70-110)
[2016-12-13] MEDS ORDERED: INFLUENZA VIRUS VACCINE QVS 2017-18 (3YR+)/PF 60 MCG/0.5 ML SYRINGE IM ONE (15:30)
[2016-12-13 16:05] VITALS: BP 140/79
[2016-12-13] MEDS: LISINOPRIL 20 MG TABLET PO SCH (17:00)
[2016-12-13] MEDS: MetFORMIN HCL 500 MG TABLET PO SCH (17:00)
[2016-12-13] MEDS ORDERED: HydrOXYzine PAMOATE 50 MG CAPSULE PO PRN (17:30)
[2016-12-13] MEDS ORDERED: MAGNESIUM HYDROXIDE SUSPENSION 30 ML UDCUP PO PRN (17:30)
[2016-12-13] MEDS ORDERED: MAG HYDROX/AL HYDROX/SIMETH ES 30 ML SUSPENSION UDCUP PO PRN (17:30)
[2016-12-13] MEDS ORDERED: PROMETHAZINE HCL 25 MG TABLET PO PRN (17:30)
[2016-12-13] MEDS ORDERED: LOPERAMIDE HCL 2 MG CAPSULE PO PRN (17:30)
[2016-12-13] MEDS ORDERED: ACETAMINOPHEN 325 MG TABLET PO PRN (17:30)
[2016-12-13] MEDS ORDERED: GLUCAGON,HUMAN RECOMBINANT 1 MG VIAL IM PRN (17:45)
[2016-12-13] MEDS ORDERED: DIVALPROEX SODIUM 500 MG DR TABLET PO SCH (21:00)
[2016-12-13] MEDS: INSULIN GLARGINE,HUM.REC.ANLOG 100 UNITS/ML SQ SCH (21:00)
[2016-12-13] MEDS ORDERED: ZIPRASIDONE HCL 80 MG CAPSULE PO SCH (21:00)
[2016-12-13] MEDS: ZIPRASIDONE HCL 80 MG CAPSULE PO SCH (21:43)
[2016-12-13 22:19] LABS: GLUCOSE,POINT OF CARE 70 MG/DL (70-110)
[2016-12-13 22:19] LABS: GLUCOSE,POINT OF CARE 102 MG/DL (70-110)
[2016-12-14 06:28] VITALS: BP 106/60
[2016-12-14] MEDS: ZIPRASIDONE HCL 80 MG CAPSULE PO SCH ×2 (07:07→16:25)
[2016-12-14] MEDS: MetFORMIN HCL 500 MG TABLET PO SCH ×2 (07:07→16:25)
[2016-12-14 08:27] LABS: CHOL/HDL RATIO 3.3 (3.9-5.7)
[2016-12-14 08:48] LABS: HEMOGLOBIN A1C 6.2 % (4.5-6.2)
[2016-12-14] MEDS: PANTOPRAZOLE SODIUM 40 MG DR TABLET PO SCH ×2 (09:00→09:15)
[2016-12-14] MEDS: FOLIC ACID 1 MG TABLET PO SCH ×2 (09:00→09:15)
[2016-12-14] MEDS: LISINOPRIL 20 MG TABLET PO SCH ×3 (09:00→16:24)
[2016-12-14] MEDS: FLUTICASONE/VILANTEROL 200-25 MCG/INH INHALER [14] IH SCH ×2 (09:00→09:15)
[2016-12-14] MEDS: SOLIFENACIN SUCCINATE 5 MG TABLET PO SCH ×2 (09:00→09:15)
[2016-12-14] MEDS: MULTIVITAMINS WITH MINERALS, THERAPEUTIC TABLET PO SCH ×3 (09:00→16:25)
[2016-12-14] MEDS: THIAMINE HCL 100 MG TABLET PO SCH ×4 (09:00→16:26)
[2016-12-14 09:16] VITALS: BP 124/74
[2016-12-14 11:47] LABS: GLUCOSE,POINT OF CARE 79 MG/DL (70-110)
[2016-12-14 11:48] LABS: GLUCOSE,POINT OF CARE 96 MG/DL (70-110)
[2016-12-14] MEDS ORDERED: ALBUTEROL SULFATE HFA 90 MCG/PUFF 8 GM INHALER IH PRN (15:15)
[2016-12-14 16:17] VITALS: BP 127/68
[2016-12-14] MEDS: NYSTATIN 30 GM CREAM TP SCH (16:25)
[2016-12-14] MEDS ORDERED: IBUPROFEN 600 MG TABLET PO PRN (17:15)
[2016-12-14 19:45] LABS: GLUCOSE,POINT OF CARE 85 MG/DL (70-110)
[2016-12-14] MEDS: DIVALPROEX SODIUM 500 MG DR TABLET PO SCH (20:22)
[2016-12-14] MEDS: FLUTICASONE/SALMETEROL 250 MCG-50 MCG/INH DISKUS INHALER [28] IH SCH (21:18)
[2016-12-14] MEDS: INSULIN GLARGINE,HUM.REC.ANLOG 100 UNITS/ML SQ SCH (21:22)
[2016-12-15 01:16] VITALS: BP 139/76
[2016-12-15] MEDS: GuaiFENesin/D-METHORPHAN [SUGAR-FREE] 200-20MG/10 ML SYRUP UDCUP PO PRN ×3 (02:13→18:44)
[2016-12-15 05:00] LABS: GLUCOSE,POINT OF CARE 124 MG/DL (70-110)
[2016-12-15] MEDS: ZIPRASIDONE HCL 80 MG CAPSULE PO SCH ×2 (07:01→16:43)
[2016-12-15] MEDS: MetFORMIN HCL 500 MG TABLET PO SCH ×2 (07:02→16:43)
[2016-12-15] MEDS: LISINOPRIL 20 MG TABLET PO SCH ×2 (08:52→16:43)
[2016-12-15] MEDS: FOLIC ACID 1 MG TABLET PO SCH (08:52)
[2016-12-15] MEDS: FLUTICASONE/SALMETEROL 250 MCG-50 MCG/INH DISKUS INHALER [28] IH SCH ×2 (08:52→20:26)
[2016-12-15] MEDS: MULTIVITAMINS WITH MINERALS, THERAPEUTIC TABLET PO SCH ×2 (08:52→08:53)
[2016-12-15] MEDS: NYSTATIN 30 GM CREAM TP SCH ×2 (08:52→16:45)
[2016-12-15] MEDS: PANTOPRAZOLE SODIUM 40 MG DR TABLET PO SCH (08:52)
[2016-12-15] MEDS: SOLIFENACIN SUCCINATE 5 MG TABLET PO SCH (08:53)
[2016-12-15] MEDS: THIAMINE HCL 100 MG TABLET PO SCH ×3 (08:53→16:43)
[2016-12-15 08:57] VITALS: BP 138/72
[2016-12-15] MEDS: NICOTINE 21 MG/24 HOUR PATCH TD SCH (09:01)
[2016-12-15 11:21] LABS: GLUCOSE,POINT OF CARE 139 MG/DL (70-110)
[2016-12-15 11:30] LABS: GLUCOSE,POINT OF CARE 150 MG/DL (70-110)
[2016-12-15] MEDS: INSULIN ASPART 100 UNITS/ML SQ PRN (11:53)
[2016-12-15 16:03] VITALS: BP 148/68
[2016-12-15 16:22] LABS: GLUCOSE,POINT OF CARE 132 MG/DL (70-110)
[2016-12-15 20:23] LABS: GLUCOSE,POINT OF CARE 140 MG/DL (70-110)
[2016-12-15] MEDS: DIVALPROEX SODIUM 500 MG DR TABLET PO SCH (20:27)
[2016-12-15] MEDS: INSULIN GLARGINE,HUM.REC.ANLOG 100 UNITS/ML SQ SCH (21:20)
[2016-12-15] MEDS: LORazepam 2 MG TABLET PO PRN (22:36)
[2016-12-16] MEDS: GuaiFENesin/D-METHORPHAN [SUGAR-FREE] 200-20MG/10 ML SYRUP UDCUP PO PRN (00:07)
[2016-12-16 00:15] VITALS: BP 140/82
[2016-12-16] MEDS ORDERED: INFLUENZA VIRUS VACCINE QVS 2017-18 (3YR+)/PF 60 MCG/0.5 ML SYRINGE IM ONE (04:15)
[2016-12-16] MEDS ORDERED: -PHARMACY VACCINE NOTE- MISC ONE ×2 (04:15)
[2016-12-16] MEDS: ZIPRASIDONE HCL 80 MG CAPSULE PO SCH ×2 (06:33→16:33)
[2016-12-16] MEDS: MetFORMIN HCL 500 MG TABLET PO SCH ×2 (06:33→16:33)
[2016-12-16 06:38] LABS: GLUCOSE,POINT OF CARE 108 MG/DL (70-110)
[2016-12-16 08:32] VITALS: BP 124/93
[2016-12-16] MEDS: FOLIC ACID 1 MG TABLET PO SCH (08:37)
[2016-12-16] MEDS: PANTOPRAZOLE SODIUM 40 MG DR TABLET PO SCH (08:37)
[2016-12-16] MEDS: LISINOPRIL 20 MG TABLET PO SCH ×2 (08:37→16:33)
[2016-12-16] MEDS: NICOTINE 21 MG/24 HOUR PATCH TD SCH (08:37)
[2016-12-16] MEDS: THIAMINE HCL 100 MG TABLET PO SCH ×3 (08:37→16:33)
[2016-12-16] MEDS: MULTIVITAMINS WITH MINERALS, THERAPEUTIC TABLET PO SCH ×2 (08:37→09:00)
[2016-12-16] MEDS: LORazepam 2 MG TABLET PO PRN (08:37)
[2016-12-16] MEDS: SOLIFENACIN SUCCINATE 5 MG TABLET PO SCH (08:38)
[2016-12-16] MEDS: NYSTATIN 30 GM CREAM TP SCH ×2 (08:39→16:34)
[2016-12-16] MEDS: FLUTICASONE/SALMETEROL 250 MCG-50 MCG/INH DISKUS INHALER [28] IH SCH ×2 (08:40→20:41)
[2016-12-16] MEDS: INSULIN ASPART 100 UNITS/ML SQ PRN ×2 (11:43→20:46)
[2016-12-16 11:48] LABS: GLUCOSE COMMENT 1 Received Meds; GLUCOSE,POINT OF CARE 292 MG/DL (70-110)
[2016-12-16 16:10] VITALS: BP 130/72
[2016-12-16 17:07] LABS: GLUCOSE,POINT OF CARE 126 MG/DL (70-110)
[2016-12-16] MEDS: DIVALPROEX SODIUM 500 MG DR TABLET PO SCH (20:38)
[2016-12-16] MEDS: INSULIN GLARGINE,HUM.REC.ANLOG 100 UNITS/ML SQ SCH (20:45)
[2016-12-17 00:38] LABS: GLUCOSE,POINT OF CARE 153 MG/DL (70-110)
[2016-12-17 01:15] VITALS: BP 138/70
[2016-12-17] MEDS: LORazepam 2 MG TABLET PO PRN ×3 (01:20→22:03)
[2016-12-17 06:38] LABS: GLUCOSE,POINT OF CARE 258 MG/DL (70-110)
[2016-12-17] MEDS: ZIPRASIDONE HCL 80 MG CAPSULE PO SCH ×2 (06:59→16:30)
[2016-12-17] MEDS: MetFORMIN HCL 500 MG TABLET PO SCH ×2 (06:59→16:30)
[2016-12-17] MEDS: INSULIN ASPART 100 UNITS/ML SQ PRN ×3 (07:00→17:09)
[2016-12-17 08:20] VITALS: BP 140/79
[2016-12-17] MEDS: PANTOPRAZOLE SODIUM 40 MG DR TABLET PO SCH (09:15)
[2016-12-17] MEDS: MULTIVITAMINS WITH MINERALS, THERAPEUTIC TABLET PO SCH (09:15)
[2016-12-17] MEDS: FOLIC ACID 1 MG TABLET PO SCH (09:15)
[2016-12-17] MEDS: LISINOPRIL 20 MG TABLET PO SCH ×2 (09:15→16:31)
[2016-12-17] MEDS: FLUTICASONE/SALMETEROL 250 MCG-50 MCG/INH DISKUS INHALER [28] IH SCH ×2 (09:15→20:41)
[2016-12-17] MEDS: SOLIFENACIN SUCCINATE 5 MG TABLET PO SCH (09:15)
[2016-12-17] MEDS: NYSTATIN 30 GM CREAM TP SCH ×2 (09:16→16:31)
[2016-12-17] MEDS: NICOTINE 21 MG/24 HOUR PATCH TD SCH (09:16)
[2016-12-17] MEDS: THIAMINE HCL 100 MG TABLET PO SCH ×2 (09:34→16:30)
[2016-12-17 11:13] LABS: GLUCOSE,POINT OF CARE 158 MG/DL (70-110)
[2016-12-17 16:12] VITALS: BP 140/91
[2016-12-17 16:38] LABS: GLUCOSE,POINT OF CARE 196 MG/DL (70-110)
[2016-12-17 17:31] VITALS: BP 135/84
[2016-12-17] MEDS: DIVALPROEX SODIUM 500 MG DR TABLET PO SCH (20:39)
[2016-12-17] MEDS: INSULIN GLARGINE,HUM.REC.ANLOG 100 UNITS/ML SQ SCH (20:52)
[2016-12-17 21:02] LABS: GLUCOSE,POINT OF CARE 134 MG/DL (70-110)
[2016-12-18] VITALS: BP 131/74
[2016-12-18] MEDS: GuaiFENesin/D-METHORPHAN [SUGAR-FREE] 200-20MG/10 ML SYRUP UDCUP PO PRN (01:17)
[2016-12-18 06:18] LABS: GLUCOSE,POINT OF CARE 109 MG/DL (70-110)
[2016-12-18] MEDS: ZIPRASIDONE HCL 80 MG CAPSULE PO SCH (06:41)
[2016-12-18] MEDS: MetFORMIN HCL 500 MG TABLET PO SCH (06:41)
[2016-12-18 08:34] LABS: APPEARANCE,URINE CLEAR (CLEAR); GLUCOSE, URINE (UA) NEGATIVE (NEGATIVE); KETONES,URINE NEGATIVE (NEGATIVE); LEUKOCYTE ESTERASE ,URINE NEGATIVE (NEGATIVE); OCCULT BLOOD,URINE NEGATIVE (NEGATIVE); PROTEIN,URINE NEGATIVE (NEGATIVE)
[2016-12-18 08:44] LABS: RBC,URINE None Seen /HPF (0-2); SQUAMOUS EPITHELIAL CELL,UR Few /LPF (None Seen); WBC,URINE 0-2 /HPF (0-5)
[2016-12-18 09:03] VITALS: BP 155/79
[2016-12-18] MEDS: SOLIFENACIN SUCCINATE 5 MG TABLET PO SCH (10:19)
[2016-12-18] MEDS: PANTOPRAZOLE SODIUM 40 MG DR TABLET PO SCH (10:19)
[2016-12-18] MEDS: THIAMINE HCL 100 MG TABLET PO SCH (10:19)
[2016-12-18] MEDS: MULTIVITAMINS WITH MINERALS, THERAPEUTIC TABLET PO SCH (10:19)
[2016-12-18] MEDS: LISINOPRIL 20 MG TABLET PO SCH (10:20)
[2016-12-18] MEDS: FOLIC ACID 1 MG TABLET PO SCH (10:20)
[2016-12-18] MEDS: FLUTICASONE/SALMETEROL 250 MCG-50 MCG/INH DISKUS INHALER [28] IH SCH (10:20)
[2016-12-18] MEDS: NICOTINE 21 MG/24 HOUR PATCH TD SCH (10:20)
[2016-12-18] MEDS: NYSTATIN 30 GM CREAM TP SCH (10:21)
[2016-12-18] MEDS ORDERED: ZIPR80CA2 PO (11:59)
[2016-12-18] MEDS ORDERED: DIVA500T35 PO (11:59)
[2016-12-18] MEDS ORDERED: INSLAN SQ (13:29)
[2016-12-18] MEDS ORDERED: ADV250 IH (13:29)
[2016-12-18 15:33] LABS: GLUCOSE,POINT OF CARE 134 MG/DL (70-110)
[2017-01-10] MEDS ORDERED: ARIPiprazole ER SUSPENSION 400 MG PRE-FILLED DUAL CHAMBER SYRINGE IM SCH (09:00)
== END 2016-12-18 14:45 | disposition home or self-care (01) | DRG 885 ==
LOC: B2X 13:29 → B3A 19:28 → B2S 19:30
PROVIDERS: ADMIT Psychiatry & Neurology Psychiatry; ATTEND Psychiatry & Neurology Psychiatry
PROC: 3E0234Z Introduction of Serum, Toxoid and Vaccine into Muscle, Percutaneous Approach (ICD-10-PCS; principal; 2016-12-16)
DX: F25.9 Schizoaffective disorder, unspecified (principal); B35.3 Tinea pedis; E11.9 Type 2 diabetes mellitus without complications; E78.5 Hyperlipidemia, unspecified; F17.210 Nicotine dependence, cigarettes, uncomplicated; E66.9 Obesity, unspecified; J44.9 Chronic obstructive pulmonary disease, unspecified; K21.9 Gastro-esophageal reflux disease without esophagitis; R10.13 Epigastric pain; I10 Essential (primary) hypertension; F19.10 Other psychoactive substance abuse, uncomplicated; R32 Unspecified urinary incontinence; Z79.4 Long term (current) use of insulin; Z79.899 Other long term (current) drug therapy; Z68.29 Body mass index [BMI] 29.0-29.9, adult; Z88.8 Allergy status to other drugs, medicaments and biological substances; Z91.19 Patient's noncompliance with other medical treatment and regimen; Z23 Encounter for immunization
CPT/HCPCS: 82306; 82962; 83036; 87081; 90471; J1815; J3535

== ENCOUNTER 2016-12-19 23:18 | Emergency (ER) | payer MEDICARE ==
[~2016-12-19] VITALS: Ht 152.4 cm; Wt 63.0 kg
[~2016-12-19 23:18] MED LIST changes: +ADV250 IH; +DIVA500T35 PO; -DIVA500T52 PO; -FOLI1TAB15 PO; +INSLAN SQ; -NALT50TA6 PO
[2016-12-20] MEDS ORDERED: IBUPROFEN 600 MG TABLET PO ONE (03:45)
[2016-12-20 04:07] VITALS: BP 138/87
== END 2016-12-20 04:08 | disposition home or self-care (01) ==
LOC: EMS 23:21
DX: M25.562 Pain in left knee (principal); F25.9 Schizoaffective disorder, unspecified; E11.9 Type 2 diabetes mellitus without complications; I10 Essential (primary) hypertension; F17.210 Nicotine dependence, cigarettes, uncomplicated; Z88.5 Allergy status to narcotic agent; Z79.4 Long term (current) use of insulin
CPT/HCPCS: 99283; 99406

== ENCOUNTER 2017-02-02 13:21 | Inpatient (IN) | payer MEDICARE ==
[~2017-02-02] VITALS: Ht 154.9 cm; Wt 71.6 kg
[2017-02-02] MEDS ORDERED: GuaiFENesin/D-METHORPHAN [SUGAR-FREE] 200-20MG/10 ML SYRUP UDCUP PO PRN (14:00)
[2017-02-02] MEDS ORDERED: ZOLPIDEM TARTRATE 10 MG TABLET PO PRN (14:00)
[2017-02-02] MEDS ORDERED: PROMETHAZINE HCL 25 MG TABLET PO PRN (14:00)
[2017-02-02] MEDS ORDERED: MAGNESIUM HYDROXIDE SUSPENSION 30 ML UDCUP PO PRN (14:00)
[2017-02-02] MEDS ORDERED: MAG HYDROX/AL HYDROX/SIMETH ES 30 ML SUSPENSION UDCUP PO PRN (14:00)
[2017-02-02] MEDS ORDERED: LOPERAMIDE HCL 2 MG CAPSULE PO PRN (14:00)
[2017-02-02] MEDS ORDERED: HydrOXYzine PAMOATE 50 MG CAPSULE PO PRN (14:00)
[2017-02-02 15:20] VITALS: BP 150/70
[2017-02-02] MEDS ORDERED: ARIPiprazole ER SUSPENSION 400 MG PRE-FILLED DUAL CHAMBER SYRINGE IM ONE (16:00)
[2017-02-02] MEDS ORDERED: GLUCAGON,HUMAN RECOMBINANT 1 MG VIAL IM SCH (16:00)
[2017-02-02] MEDS ORDERED: PNEUMOCOCCAL VACCINE POLYVALENT 0.5 ML VIAL [PPSV23] IM ONE (16:00)
[2017-02-02 16:14] VITALS: BP 145/80
[2017-02-02 16:47] LABS: GLUCOSE,POINT OF CARE 155 MG/DL (70-110)
[2017-02-02] MEDS: INSULIN ASPART 100 UNITS/ML SQ PRN (17:05)
[2017-02-02] MEDS: LISINOPRIL 20 MG TABLET PO SCH (17:07)
[2017-02-02] MEDS: MetFORMIN HCL 500 MG TABLET PO SCH (17:07)
[2017-02-02] MEDS: THIAMINE HCL 100 MG TABLET PO SCH (17:07)
[2017-02-02] MEDS: DIVALPROEX SODIUM 500 MG ER TABLET PO SCH (20:15)
[2017-02-02] MEDS: LORazepam 2 MG TABLET PO PRN (20:38)
[2017-02-02 20:52] LABS: GLUCOSE,POINT OF CARE 133 MG/DL (70-110)
[2017-02-02] MEDS: OLANZapine 5 MG RAPDIS TABLET PO PRN (21:05)
[2017-02-02] MEDS: FLUTICASONE/SALMETEROL 250 MCG-50 MCG/INH DISKUS INHALER [28] IH SCH (21:32)
[2017-02-03 06:07] LABS: GLUCOSE,POINT OF CARE 112 MG/DL (70-110)
[2017-02-03 06:27] VITALS: BP 128/69
[2017-02-03] MEDS: MetFORMIN HCL 500 MG TABLET PO SCH ×2 (07:01→16:35)
[2017-02-03 08:17] LABS: BASOPHILS % (AUTO) 0.5 % (0.0-2.0); EOSINOPHILS % (AUTO) 1.7 % (1.0-6.0); HEMATOCRIT 39.9 % (36-46); HEMOGLOBIN 13.6 g/dL (12.0-16.0); LYMPHOCYTES # (AUTO) 4.3 K/uL (1.0-4.8); LYMPHOCYTES % (AUTO) 49.4 % (22.0-44.0); MEAN CORPUSCULAR HEMOGLOBIN 32.7 pg (26.0-34.0); MEAN CORPUSCULAR VOLUME 96 fL (80-100); MONOCYTES # (AUTO) 0.5 K/uL (0.1-1.0); MONOCYTES % (AUTO) 5.7 % (2.0-9.0); NEUTROPHILS # (AUTO) 3.7 K/uL (1.8-7.7); NEUTROPHILS % (AUTO) 42.7 % (40.0-70.0); PLATELET COUNT (AUTO) 280 K/uL (150-450); RED BLOOD CELL COUNT(AUTO) 4.14 MIL/uL (4.00-5.20); WHITE BLOOD COUNT (AUTO) 8.7 K/uL (4.5-11.0)
[2017-02-03 08:26] VITALS: BP 127/80
[2017-02-03 08:40] LABS: ALANINE AMINOTRANSFERASE 20 U/L (12-78); ALBUMIN 2.9 g/dL (3.4-5.0); ANION GAP 7 mmol/L (8-16); ASPARTATE AMINOTRANSFERASE 16 U/L (15-37); BILIRUBIN,TOTAL 0.3 mg/dL (0.1-1.0); CALCIUM, TOTAL 8.8 mg/dL (8.8-10.5); CARBON DIOXIDE 30 mmol/L (22-29); CHLORIDE 103 mmol/L (98-107); CHOL/HDL RATIO 3.7 (3.9-5.7); CREATININE 0.57 mg/dL (0.60-1.30); GLOMERULAR FILTR. RATE CALC > 60 mL/min (>60); POTASSIUM 3.3 mmol/L (3.5-5.1); SODIUM SERUM 140 mmol/L (136-145); TOTAL PROTEIN, SERUM 6.9 g/dL (6.4-8.2); UREA NITROGEN, BLOOD 13 mg/dL (7-18); VALPROIC ACID 78 mcg/mL (50-100)
[2017-02-03] MEDS: MULTIVITAMINS WITH MINERALS, THERAPEUTIC TABLET PO SCH (08:48)
[2017-02-03] MEDS: THIAMINE HCL 100 MG TABLET PO SCH ×2 (08:48→16:35)
[2017-02-03] MEDS: PANTOPRAZOLE SODIUM 40 MG DR TABLET PO SCH (08:48)
[2017-02-03] MEDS: NALTREXONE HCL 50 MG TABLET PO SCH (08:48)
[2017-02-03] MEDS: SOLIFENACIN SUCCINATE 5 MG TABLET PO SCH (08:48)
[2017-02-03] MEDS: LISINOPRIL 20 MG TABLET PO SCH ×2 (08:48→16:35)
[2017-02-03] MEDS: FOLIC ACID 1 MG TABLET PO SCH (08:48)
[2017-02-03] MEDS: ARIPiprazole 15 MG TABLET PO SCH (08:48)
[2017-02-03 08:49] LABS: HEMOGLOBIN A1C 6.4 % (4.5-6.2)
[2017-02-03] MEDS: NICOTINE 21 MG/24 HOUR PATCH TD SCH (08:49)
[2017-02-03] MEDS: FLUTICASONE/SALMETEROL 250 MCG-50 MCG/INH DISKUS INHALER [28] IH SCH ×2 (08:49→20:32)
[2017-02-03] MEDS: OLANZapine 5 MG RAPDIS TABLET PO PRN (09:46)
[2017-02-03] MEDS: LORazepam 2 MG TABLET PO PRN (09:46)
[2017-02-03 10:33] LABS: GLUCOSE, URINE (UA) NEGATIVE (NEGATIVE); KETONES,URINE TRACE mg/dL (NEGATIVE); LEUKOCYTE ESTERASE ,URINE NEGATIVE (NEGATIVE); OCCULT BLOOD,URINE NEGATIVE (NEGATIVE); PH,URINE 6.5 (5.0-8.0)
[2017-02-03 10:38] LABS: APPEARANCE,URINE CLEAR (CLEAR); PROTEIN,URINE NEGATIVE (NEGATIVE)
[2017-02-03 10:39] LABS: ADD UA MICROSCOPIC NO
[2017-02-03 11:07] LABS: GLUCOSE,POINT OF CARE 122 MG/DL (70-110)
[2017-02-03 16:00] VITALS: BP 120/65
[2017-02-03 16:22] LABS: GLUCOSE,POINT OF CARE 72 MG/DL (70-110)
[2017-02-03] MEDS ORDERED: POTASSIUM CHLORIDE 20 MEQ ER TABLET PO ONE (17:00)
[2017-02-03] MEDS: ACETAMINOPHEN 325 MG TABLET PO PRN (17:26)
[2017-02-03 20:32] LABS: GLUCOSE,POINT OF CARE 131 MG/DL (70-110)
[2017-02-03] MEDS: DIVALPROEX SODIUM 500 MG ER TABLET PO SCH (20:33)
[2017-02-04 02:25] VITALS: BP 137/76
[2017-02-04] MEDS: ACETAMINOPHEN 325 MG TABLET PO PRN ×2 (02:34→09:04)
[2017-02-04] MEDS: LORazepam 2 MG TABLET PO PRN ×2 (02:34→09:04)
[2017-02-04 06:23] LABS: GLUCOSE COMMENT 1 Doctor Notified; GLUCOSE,POINT OF CARE 118 MG/DL (70-110)
[2017-02-04] MEDS: MetFORMIN HCL 500 MG TABLET PO SCH ×2 (06:33→16:31)
[2017-02-04 08:52] VITALS: BP 133/77
[2017-02-04] MEDS: PANTOPRAZOLE SODIUM 40 MG DR TABLET PO SCH (08:55)
[2017-02-04] MEDS: THIAMINE HCL 100 MG TABLET PO SCH ×2 (08:56→16:31)
[2017-02-04] MEDS: ARIPiprazole 15 MG TABLET PO SCH (08:56)
[2017-02-04] MEDS: LISINOPRIL 20 MG TABLET PO SCH ×2 (08:56→16:31)
[2017-02-04] MEDS: MULTIVITAMINS WITH MINERALS, THERAPEUTIC TABLET PO SCH (08:56)
[2017-02-04] MEDS: SOLIFENACIN SUCCINATE 5 MG TABLET PO SCH (08:56)
[2017-02-04] MEDS: FOLIC ACID 1 MG TABLET PO SCH (08:56)
[2017-02-04] MEDS: NALTREXONE HCL 50 MG TABLET PO SCH (08:56)
[2017-02-04] MEDS: NICOTINE 21 MG/24 HOUR PATCH TD SCH (08:56)
[2017-02-04] MEDS: FLUTICASONE/SALMETEROL 250 MCG-50 MCG/INH DISKUS INHALER [28] IH SCH ×2 (08:59→20:31)
[2017-02-04] MEDS: INSULIN ASPART 100 UNITS/ML SQ PRN ×3 (11:26→20:39)
[2017-02-04 11:32] LABS: GLUCOSE,POINT OF CARE 142 MG/DL (70-110)
[2017-02-04 16:10] VITALS: BP 152/71
[2017-02-04 16:17] LABS: GLUCOSE,POINT OF CARE 171 MG/DL (70-110)
[2017-02-04 17:54] VITALS: BP 142/78
[2017-02-04] MEDS: DIVALPROEX SODIUM 500 MG ER TABLET PO SCH (20:31)
[2017-02-04 20:33] LABS: GLUCOSE,POINT OF CARE 153 MG/DL (70-110)
[2017-02-05 05:26] VITALS: BP 135/75
[2017-02-05] MEDS: LORazepam 2 MG TABLET PO PRN ×2 (06:19→16:58)
[2017-02-05 06:27] LABS: GLUCOSE,POINT OF CARE 173 MG/DL (70-110)
[2017-02-05] MEDS: INSULIN ASPART 100 UNITS/ML SQ PRN ×3 (06:28→16:54)
[2017-02-05] MEDS: MetFORMIN HCL 500 MG TABLET PO SCH ×2 (06:30→16:57)
[2017-02-05 08:10] VITALS: BP 143/74
[2017-02-05] MEDS: LISINOPRIL 20 MG TABLET PO SCH ×2 (08:15→16:58)
[2017-02-05] MEDS: PANTOPRAZOLE SODIUM 40 MG DR TABLET PO SCH (08:15)
[2017-02-05] MEDS: MULTIVITAMINS WITH MINERALS, THERAPEUTIC TABLET PO SCH (08:15)
[2017-02-05] MEDS: NALTREXONE HCL 50 MG TABLET PO SCH (08:15)
[2017-02-05] MEDS: THIAMINE HCL 100 MG TABLET PO SCH ×2 (08:15→16:58)
[2017-02-05] MEDS: FLUTICASONE/SALMETEROL 250 MCG-50 MCG/INH DISKUS INHALER [28] IH SCH ×2 (08:16→21:00)
[2017-02-05] MEDS: NICOTINE 21 MG/24 HOUR PATCH TD SCH (08:16)
[2017-02-05] MEDS: SOLIFENACIN SUCCINATE 5 MG TABLET PO SCH (08:16)
[2017-02-05] MEDS: FOLIC ACID 1 MG TABLET PO SCH (08:16)
[2017-02-05] MEDS: ARIPiprazole 15 MG TABLET PO SCH (08:16)
[2017-02-05] MEDS: OLANZapine 5 MG RAPDIS TABLET PO PRN (08:21)
[2017-02-05 11:27] LABS: GLUCOSE,POINT OF CARE 148 MG/DL (70-110)
[2017-02-05 16:03] VITALS: BP 145/73
[2017-02-05 16:57] LABS: GLUCOSE,POINT OF CARE 213 MG/DL (70-110)
[2017-02-05] MEDS: ZIPRASIDONE HCL 20 MG CAPSULE PO SCH (16:57)
[2017-02-05 21:07] LABS: GLUCOSE,POINT OF CARE 92 MG/DL (70-110)
[2017-02-05] MEDS: DIVALPROEX SODIUM 500 MG ER TABLET PO SCH (21:23)
[2017-02-06 02:56] VITALS: BP 130/78
[2017-02-06 06:23] LABS: GLUCOSE,POINT OF CARE 144 MG/DL (70-110)
[2017-02-06] MEDS: ZIPRASIDONE HCL 20 MG CAPSULE PO SCH (06:47)
[2017-02-06] MEDS: MetFORMIN HCL 500 MG TABLET PO SCH ×2 (06:48→16:35)
[2017-02-06] MEDS: INSULIN ASPART 100 UNITS/ML SQ PRN ×4 (07:04→20:39)
[2017-02-06 08:14] VITALS: BP 141/93
[2017-02-06] MEDS: SOLIFENACIN SUCCINATE 5 MG TABLET PO SCH (09:38)
[2017-02-06] MEDS: NALTREXONE HCL 50 MG TABLET PO SCH (09:38)
[2017-02-06] MEDS: MULTIVITAMINS WITH MINERALS, THERAPEUTIC TABLET PO SCH (09:39)
[2017-02-06] MEDS: FOLIC ACID 1 MG TABLET PO SCH (09:39)
[2017-02-06] MEDS: NICOTINE 21 MG/24 HOUR PATCH TD SCH (09:39)
[2017-02-06] MEDS: LISINOPRIL 20 MG TABLET PO SCH ×2 (09:39→16:35)
[2017-02-06] MEDS: PANTOPRAZOLE SODIUM 40 MG DR TABLET PO SCH (09:39)
[2017-02-06] MEDS: THIAMINE HCL 100 MG TABLET PO SCH ×2 (09:39→16:35)
[2017-02-06] MEDS: FLUTICASONE/SALMETEROL 250 MCG-50 MCG/INH DISKUS INHALER [28] IH SCH ×2 (09:40→20:38)
[2017-02-06 11:58] LABS: GLUCOSE,POINT OF CARE 176 MG/DL (70-110)
[2017-02-06] MEDS: LORazepam 2 MG TABLET PO PRN (13:38)
[2017-02-06 16:02] VITALS: BP 130/73
[2017-02-06 16:22] LABS: GLUCOSE,POINT OF CARE 142 MG/DL (70-110)
[2017-02-06] MEDS: ZIPRASIDONE HCL 40 MG CAPSULE PO SCH (16:35)
[2017-02-06 20:33] LABS: GLUCOSE,POINT OF CARE 168 MG/DL (70-110)
[2017-02-06] MEDS: DIVALPROEX SODIUM 500 MG ER TABLET PO SCH (20:39)
[2017-02-07] MEDS: LORazepam 2 MG TABLET PO PRN ×2 (00:02→06:25)
[2017-02-07 06:18] LABS: GLUCOSE,POINT OF CARE 101 MG/DL (70-110)
[2017-02-07 06:20] VITALS: BP 136/72
[2017-02-07] MEDS: MetFORMIN HCL 500 MG TABLET PO SCH ×2 (06:59→16:57)
[2017-02-07] MEDS: ZIPRASIDONE HCL 40 MG CAPSULE PO SCH ×2 (06:59→16:57)
[2017-02-07 08:01] VITALS: BP 148/84
[2017-02-07] MEDS: THIAMINE HCL 100 MG TABLET PO SCH ×2 (08:19→16:57)
[2017-02-07] MEDS: MULTIVITAMINS WITH MINERALS, THERAPEUTIC TABLET PO SCH (08:19)
[2017-02-07] MEDS: FLUTICASONE/SALMETEROL 250 MCG-50 MCG/INH DISKUS INHALER [28] IH SCH (08:19)
[2017-02-07] MEDS: PANTOPRAZOLE SODIUM 40 MG DR TABLET PO SCH (08:19)
[2017-02-07] MEDS: SOLIFENACIN SUCCINATE 5 MG TABLET PO SCH (08:19)
[2017-02-07] MEDS: NALTREXONE HCL 50 MG TABLET PO SCH (08:19)
[2017-02-07] MEDS: LISINOPRIL 20 MG TABLET PO SCH ×2 (08:20→16:57)
[2017-02-07] MEDS: FOLIC ACID 1 MG TABLET PO SCH (08:20)
[2017-02-07] MEDS: NICOTINE 21 MG/24 HOUR PATCH TD SCH (08:20)
[2017-02-07 11:38] LABS: GLUCOSE,POINT OF CARE 131 MG/DL (70-110)
[2017-02-07] MEDS ORDERED: DIVA500T52 PO (12:34)
[2017-02-07] MEDS ORDERED: ZIPR40CA2 PO (12:34)
[2017-02-07] MEDS ORDERED: NALT50TA PO (12:34)
[2017-02-07 16:42] LABS: GLUCOSE,POINT OF CARE 183 MG/DL (70-110)
[2017-03-02] MEDS ORDERED: ARIPiprazole ER SUSPENSION 400 MG PRE-FILLED DUAL CHAMBER SYRINGE IM SCH (09:00)
== END 2017-02-07 18:10 | disposition home or self-care (01) | DRG 885 ==
LOC: B2X 15:22
PROVIDERS: ADMIT Psychiatry & Neurology Psychiatry; ATTEND Psychiatry & Neurology Psychiatry
PROC: 3E0234Z Introduction of Serum, Toxoid and Vaccine into Muscle, Percutaneous Approach (ICD-10-PCS; principal; 2017-02-02)
DX: F25.0 Schizoaffective disorder, bipolar type (principal); E11.9 Type 2 diabetes mellitus without complications; F17.200 Nicotine dependence, unspecified, uncomplicated; Z23 Encounter for immunization; J44.9 Chronic obstructive pulmonary disease, unspecified; K21.9 Gastro-esophageal reflux disease without esophagitis; R32 Unspecified urinary incontinence; Z65.3 Problems related to other legal circumstances; Z68.29 Body mass index [BMI] 29.0-29.9, adult; Z91.19 Patient's noncompliance with other medical treatment and regimen; Z88.8 Allergy status to other drugs, medicaments and biological substances; I10 Essential (primary) hypertension; F19.11 Other psychoactive substance abuse, in remission
CPT/HCPCS: 80307; 82962; 83036; 84132; 84439; 84443; 86592; 90471; J0401; J3535

== ENCOUNTER 2017-06-06 16:06 | Inpatient (IN) | payer MEDICARE, SELFPAY ==
[~2017-06-06] VITALS: Ht 149.9 cm; Wt 72.4 kg
[~2017-06-06 16:06] MED LIST changes: -DIVA500T35 PO; +DIVA500T52 PO; -INSLAN SQ; +NALT50TA PO; +ZIPR40CA2 PO; -ZIPR80CA2 PO
[2017-06-06 16:27] LABS: GLUCOSE,POINT OF CARE 129 MG/DL (70-110)
[2017-06-06] MEDS ORDERED: ARIPiprazole 15 MG TABLET PO ONE (16:30)
[2017-06-06] MEDS ORDERED: LORazepam 2 MG/ML VIAL IM ONE (16:30)
[2017-06-06] MEDS ORDERED: DiphenhydrAMINE HCL 50 MG/ML VIAL IM ONE (16:30)
[2017-06-06 16:52] LABS: BASOPHILS % (AUTO) 0.8 % (0.0-2.0); EOSINOPHILS % (AUTO) 0.8 % (1.0-6.0); HEMATOCRIT 38.9 % (36-46); HEMOGLOBIN 13.4 g/dL (12.0-16.0); LYMPHOCYTES # (AUTO) 2.6 K/uL (1.0-4.8); LYMPHOCYTES % (AUTO) 26.5 % (22.0-44.0); MEAN CORPUSCULAR HEMOGLOBIN 31.7 pg (26.0-34.0); MEAN CORPUSCULAR HGB CONC 34.4 G/dL (31.0-37.0); MEAN CORPUSCULAR VOLUME 92 fL (80-100); MONOCYTES # (AUTO) 0.9 K/uL (0.1-1.0); MONOCYTES % (AUTO) 8.6 % (2.0-9.0); NEUTROPHILS # (AUTO) 6.3 K/uL (1.8-7.7); NEUTROPHILS % (AUTO) 63.3 % (40.0-70.0); PLATELET COUNT (AUTO) 338 K/uL (150-450); RED BLOOD CELL COUNT(AUTO) 4.21 MIL/uL (4.00-5.20); RED CELL DISTRIBUTION WIDTH 14.9 % (11.5-14.5)
[2017-06-06 17:07] LABS: ANION GAP 10 mmol/L (8-16); CALCIUM, TOTAL 9.3 mg/dL (8.8-10.5); CARBON DIOXIDE 28 mmol/L (22-29); CHLORIDE 100 mmol/L (98-107); CREATININE 0.93 mg/dL (0.60-1.30); GLOMERULAR FILTR. RATE CALC > 60 mL/min (>60); GLUCOSE,RANDOM 116 mg/dL (70-110); POTASSIUM 4.7 mmol/L (3.5-5.1); SODIUM SERUM 138 mmol/L (136-145); UREA NITROGEN, BLOOD 16 mg/dL (7-18)
[2017-06-06 17:10] LABS: AMPHET/METH SCREEN,URINE NEGATIVE (NEGATIVE); BARBITURATE SCREEN, URINE NEGATIVE (NEGATIVE); BENZODIAZEPINES SCREEN,URINE NEGATIVE (NEGATIVE); CANNABINOID SCREEN,URINE NEGATIVE (NEGATIVE); COCAINE SCREEN,URINE NEGATIVE (NEGATIVE); METHADONE SCREEN, URINE NEGATIVE (NEGATIVE); OPIATE SCREEN,URINE NEGATIVE (NEGATIVE); PHENCYCLIDINE SCREEN,URINE NEGATIVE (NEGATIVE)
[2017-06-06 17:13] LABS: ALANINE AMINOTRANSFERASE 25 U/L (12-78); ALBUMIN 3.6 g/dL (3.4-5.0); ALKALINE PHOSPHATASE 106 U/L (46-116); ASPARTATE AMINOTRANSFERASE 37 U/L (15-37); BILIRUBIN,TOTAL 0.7 mg/dL (0.1-1.0); TOTAL PROTEIN, SERUM 8.9 g/dL (6.4-8.2)
[2017-06-06] MEDS ORDERED: ZOLPIDEM TARTRATE 10 MG TABLET PO PRN (18:15)
[2017-06-06 19:47] LABS: APPEARANCE,URINE CLOUDY (CLEAR); GLUCOSE, URINE (UA) NEGATIVE (NEGATIVE); KETONES,URINE TRACE mg/dL (NEGATIVE); LEUKOCYTE ESTERASE ,URINE TRACE (NEGATIVE); NITRATE,URINE NEGATIVE (NEGATIVE); OCCULT BLOOD,URINE NEGATIVE (NEGATIVE); PROTEIN,URINE SEE CONFIRM (NEGATIVE)
[2017-06-06 20:06] LABS: BILIRUBIN,URINE PRELIM. POSITIVE (NEGATIVE)
[2017-06-06 20:07] LABS: SULFOSALICYLIC ACID,URINE 2+ (Negative)
[2017-06-06 20:08] LABS: BACTERIA,URINE Few /HPF (None Seen); RBC,URINE None Seen /HPF (0-2); SQUAMOUS EPITHELIAL CELL,UR Many /LPF (None Seen)
[2017-06-06 20:23] LABS: GLUCOMETER DEV NAME(LOC) BV2S; GLUCOSE,POINT OF CARE 101 MG/DL (70-110)
[2017-06-06] MEDS ORDERED: -PHARMACY VACCINE NOTE- MISC ONE ×3 (21:00→21:15)
[2017-06-06 21:04] VITALS: BP 140/70
[2017-06-06] MEDS ORDERED: GLUCAGON,HUMAN RECOMBINANT 1 MG VIAL IM PRN (21:15)
[2017-06-07 05:53] LABS: GLUCOMETER DEV NAME(LOC) BV2S; GLUCOSE,POINT OF CARE 181 MG/DL (70-110)
[2017-06-07] MEDS: INSULIN LISPRO 100 UNITS/ML SQ PRN ×2 (06:05→16:47)
[2017-06-07] MEDS: MetFORMIN HCL 500 MG TABLET PO SCH ×2 (06:21→16:45)
[2017-06-07 06:45] VITALS: BP 142/81
[2017-06-07] MEDS: LORazepam 2 MG TABLET PO PRN ×2 (06:45→17:27)
[2017-06-07] MEDS: LISINOPRIL 20 MG TABLET PO SCH (08:18)
[2017-06-07] MEDS: PANTOPRAZOLE SODIUM 40 MG DR TABLET PO SCH (08:18)
[2017-06-07] MEDS: BACITRACIN 28.4 GM OINTMENT TP SCH (08:18)
[2017-06-07] MEDS: FLUTICASONE/SALMETEROL 250 MCG-50 MCG/INH DISKUS INHALER [28] IH SCH ×2 (08:18→20:59)
[2017-06-07] MEDS: NICOTINE 21 MG/24 HOUR PATCH TD SCH (08:18)
[2017-06-07 08:42] VITALS: BP 140/76
[2017-06-07] MEDS ORDERED: IBUPROFEN 400 MG TABLET PO PRN (14:15)
[2017-06-07 16:15] VITALS: BP 133/83
[2017-06-07 16:17] LABS: GLUCOMETER DEV NAME(LOC) BV2S; GLUCOSE,POINT OF CARE 151 MG/DL (70-110)
[2017-06-07] MEDS: DIVALPROEX SODIUM 500 MG ER TABLET PO SCH (20:59)
[2017-06-08 05:52] LABS: GLUCOMETER DEV NAME(LOC) BV2S; GLUCOSE,POINT OF CARE 158 MG/DL (70-110)
[2017-06-08] MEDS: INSULIN LISPRO 100 UNITS/ML SQ PRN ×2 (06:14→16:31)
[2017-06-08 06:41] VITALS: BP 143/73
[2017-06-08] MEDS: MetFORMIN HCL 500 MG TABLET PO SCH ×2 (06:56→16:58)
[2017-06-08] MEDS: ZIPRASIDONE HCL 40 MG CAPSULE PO SCH ×2 (06:56→16:58)
[2017-06-08] MEDS: BACITRACIN 28.4 GM OINTMENT TP SCH (08:20)
[2017-06-08] MEDS: FLUTICASONE/SALMETEROL 250 MCG-50 MCG/INH DISKUS INHALER [28] IH SCH ×2 (08:20→20:35)
[2017-06-08] MEDS: PANTOPRAZOLE SODIUM 40 MG DR TABLET PO SCH (08:20)
[2017-06-08] MEDS: LISINOPRIL 20 MG TABLET PO SCH (08:20)
[2017-06-08] MEDS: NICOTINE 21 MG/24 HOUR PATCH TD SCH (08:20)
[2017-06-08 08:52] VITALS: BP 152/84
[2017-06-08 09:18] LABS: CHOL/HDL RATIO 5.2 (3.9-5.7)
[2017-06-08 10:00] VITALS: BP 124/73
[2017-06-08 16:33] VITALS: BP 136/85
[2017-06-08 16:38] LABS: GLUCOMETER DEV NAME(LOC) BV2S; GLUCOSE,POINT OF CARE 160 MG/DL (70-110)
[2017-06-08] MEDS: DIVALPROEX SODIUM 500 MG ER TABLET PO SCH (20:34)
[2017-06-09 01:46] VITALS: BP 129/86
[2017-06-09] MEDS: ZIPRASIDONE HCL 40 MG CAPSULE PO SCH ×2 (06:35→16:55)
[2017-06-09] MEDS: MetFORMIN HCL 500 MG TABLET PO SCH ×2 (06:35→16:55)
[2017-06-09 06:38] LABS: GLUCOMETER DEV NAME(LOC) BV2S; GLUCOSE,POINT OF CARE 132 MG/DL (70-110)
[2017-06-09 08:29] VITALS: BP 138/73
[2017-06-09] MEDS: PANTOPRAZOLE SODIUM 40 MG DR TABLET PO SCH (08:31)
[2017-06-09] MEDS: LISINOPRIL 20 MG TABLET PO SCH (08:31)
[2017-06-09] MEDS: NICOTINE 21 MG/24 HOUR PATCH TD SCH (08:32)
[2017-06-09] MEDS: FLUTICASONE/SALMETEROL 250 MCG-50 MCG/INH DISKUS INHALER [28] IH SCH ×2 (08:32→20:10)
[2017-06-09] MEDS: BACITRACIN 28.4 GM OINTMENT TP SCH (08:36)
[2017-06-09 14:26] VITALS: BP 128/72
[2017-06-09] MEDS: ACETAMINOPHEN 325 MG TABLET PO PRN (14:26)
[2017-06-09] MEDS: INSULIN LISPRO 100 UNITS/ML SQ PRN (16:42)
[2017-06-09 16:48] LABS: GLUCOMETER DEV NAME(LOC) BV2S; GLUCOSE,POINT OF CARE 206 MG/DL (70-110)
[2017-06-09 17:09] VITALS: BP 135/66
[2017-06-09] MEDS: DIVALPROEX SODIUM 500 MG ER TABLET PO SCH (20:10)
[2017-06-10 00:05] VITALS: BP 130/86
[2017-06-10 05:43] LABS: GLUCOMETER DEV NAME(LOC) BV2S; GLUCOSE,POINT OF CARE 108 MG/DL (70-110)
[2017-06-10] MEDS: ZIPRASIDONE HCL 40 MG CAPSULE PO SCH (06:28)
[2017-06-10] MEDS: MetFORMIN HCL 500 MG TABLET PO SCH ×2 (06:28→16:53)
[2017-06-10 08:22] VITALS: BP 147/89
[2017-06-10] MEDS: PANTOPRAZOLE SODIUM 40 MG DR TABLET PO SCH (08:46)
[2017-06-10] MEDS: FLUTICASONE/SALMETEROL 250 MCG-50 MCG/INH DISKUS INHALER [28] IH SCH ×2 (08:46→20:10)
[2017-06-10] MEDS: LISINOPRIL 20 MG TABLET PO SCH (08:46)
[2017-06-10] MEDS: NICOTINE 21 MG/24 HOUR PATCH TD SCH (08:47)
[2017-06-10] MEDS: BACITRACIN 28.4 GM OINTMENT TP SCH (08:48)
[2017-06-10] MEDS: LORazepam 1 MG TABLET PO PRN (14:55)
[2017-06-10 16:11] VITALS: BP 142/78
[2017-06-10 16:48] LABS: GLUCOMETER DEV NAME(LOC) BV2S; GLUCOSE,POINT OF CARE 122 MG/DL (70-110)
[2017-06-10] MEDS: ZIPRASIDONE HCL 20 MG CAPSULE PO SCH (16:54)
[2017-06-10] MEDS: DIVALPROEX SODIUM 500 MG ER TABLET PO SCH (20:10)
[2017-06-11] VITALS: BP 132/76
[2017-06-11 06:02] LABS: GLUCOMETER DEV NAME(LOC) BV2S; GLUCOSE,POINT OF CARE 113 MG/DL (70-110)
[2017-06-11] MEDS: ZIPRASIDONE HCL 20 MG CAPSULE PO SCH (06:45)
[2017-06-11] MEDS: MetFORMIN HCL 500 MG TABLET PO SCH ×2 (06:46→16:59)
[2017-06-11 08:39] VITALS: BP 139/75
[2017-06-11 08:41] LABS: APPEARANCE,URINE CLEAR (CLEAR); BILIRUBIN,URINE NEGATIVE (NEGATIVE); GLUCOSE, URINE (UA) NEGATIVE (NEGATIVE); KETONES,URINE NEGATIVE (NEGATIVE); LEUKOCYTE ESTERASE ,URINE NEGATIVE (NEGATIVE); NITRATE,URINE NEGATIVE (NEGATIVE); OCCULT BLOOD,URINE NEGATIVE (NEGATIVE); PROTEIN,URINE NEGATIVE (NEGATIVE)
[2017-06-11] MEDS: FLUTICASONE/SALMETEROL 250 MCG-50 MCG/INH DISKUS INHALER [28] IH SCH ×2 (10:13→21:16)
[2017-06-11] MEDS: PANTOPRAZOLE SODIUM 40 MG DR TABLET PO SCH (10:14)
[2017-06-11] MEDS: LISINOPRIL 20 MG TABLET PO SCH (10:14)
[2017-06-11] MEDS: NICOTINE 21 MG/24 HOUR PATCH TD SCH (10:14)
[2017-06-11] MEDS: BACITRACIN 28.4 GM OINTMENT TP SCH (10:15)
[2017-06-11 10:34] LABS: BACTERIA,URINE Rare /HPF (None Seen); RBC,URINE None Seen /HPF (0-2); WBC,URINE 0-2 /HPF (0-5)
[2017-06-11 10:35] LABS: SQUAMOUS EPITHELIAL CELL,UR Moderate /LPF (None Seen)
[2017-06-11 16:30] VITALS: BP 148/80
[2017-06-11 16:43] LABS: GLUCOMETER DEV NAME(LOC) BV2S; GLUCOSE,POINT OF CARE 164 MG/DL (70-110)
[2017-06-11] MEDS ORDERED: ACETAMINOPHEN 325 MG TABLET PO PRN (16:45)
[2017-06-11] MEDS ORDERED: MAGNESIUM HYDROXIDE SUSPENSION 30 ML UDCUP PO PRN (16:45)
[2017-06-11] MEDS ORDERED: MAG HYDROX/AL HYDROX/SIMETH ES 30 ML SUSPENSION UDCUP PO PRN (16:45)
[2017-06-11] MEDS ORDERED: PROMETHAZINE HCL 25 MG TABLET PO PRN (16:45)
[2017-06-11] MEDS ORDERED: LOPERAMIDE HCL 2 MG CAPSULE PO PRN (16:45)
[2017-06-11] MEDS ORDERED: GuaiFENesin/D-METHORPHAN [SUGAR-FREE] 200-20MG/10 ML SYRUP UDCUP PO PRN (16:45)
[2017-06-11] MEDS ORDERED: HydrOXYzine PAMOATE 50 MG CAPSULE PO PRN (16:45)
[2017-06-11] MEDS: INSULIN LISPRO 100 UNITS/ML SQ PRN (16:58)
[2017-06-11] MEDS: THIAMINE HCL 100 MG TABLET PO SCH (17:02)
[2017-06-11] MEDS: ZIPRASIDONE HCL 80 MG CAPSULE PO SCH (17:04)
[2017-06-11] MEDS: DIVALPROEX SODIUM 500 MG ER TABLET PO SCH (21:16)
[2017-06-12 04:39] VITALS: BP 137/76
[2017-06-12 06:07] LABS: GLUCOMETER DEV NAME(LOC) BV2S; GLUCOSE,POINT OF CARE 122 MG/DL (70-110)
[2017-06-12] MEDS: MetFORMIN HCL 500 MG TABLET PO SCH ×2 (06:24→17:11)
[2017-06-12] MEDS: ZIPRASIDONE HCL 80 MG CAPSULE PO SCH ×2 (06:25→17:11)
[2017-06-12] MEDS: THIAMINE HCL 100 MG TABLET PO SCH ×2 (08:29→17:11)
[2017-06-12] MEDS: MULTIVITAMINS WITH MINERALS, THERAPEUTIC TABLET PO SCH (08:29)
[2017-06-12] MEDS: NICOTINE 21 MG/24 HOUR PATCH TD SCH (08:30)
[2017-06-12] MEDS: LISINOPRIL 20 MG TABLET PO SCH (08:30)
[2017-06-12] MEDS: NALTREXONE HCL 50 MG TABLET PO SCH (08:30)
[2017-06-12] MEDS: FOLIC ACID 1 MG TABLET PO SCH (08:30)
[2017-06-12] MEDS: PANTOPRAZOLE SODIUM 40 MG DR TABLET PO SCH (08:30)
[2017-06-12] MEDS: FLUTICASONE/SALMETEROL 250 MCG-50 MCG/INH DISKUS INHALER [28] IH SCH ×2 (08:31→20:27)
[2017-06-12] MEDS: BACITRACIN 28.4 GM OINTMENT TP SCH (08:31)
[2017-06-12 08:46] VITALS: BP 140/83
[2017-06-12 16:16] VITALS: BP 139/85
[2017-06-12] MEDS: INSULIN LISPRO 100 UNITS/ML SQ PRN (16:42)
[2017-06-12 16:53] LABS: GLUCOMETER DEV NAME(LOC) BV2S; GLUCOSE,POINT OF CARE 196 MG/DL (70-110)
[2017-06-12] MEDS: DIVALPROEX SODIUM 500 MG ER TABLET PO SCH (20:27)
[2017-06-13 01:43] VITALS: BP 133/79
[2017-06-13 06:28] LABS: GLUCOMETER DEV NAME(LOC) BV2S; GLUCOSE,POINT OF CARE 103 MG/DL (70-110)
[2017-06-13] MEDS: MetFORMIN HCL 500 MG TABLET PO SCH ×2 (07:08→16:39)
[2017-06-13] MEDS: ZIPRASIDONE HCL 80 MG CAPSULE PO SCH ×2 (07:09→16:40)
[2017-06-13 08:00] VITALS: BP 135/74
[2017-06-13] MEDS: MULTIVITAMINS WITH MINERALS, THERAPEUTIC TABLET PO SCH (08:12)
[2017-06-13] MEDS: FOLIC ACID 1 MG TABLET PO SCH (08:12)
[2017-06-13] MEDS: THIAMINE HCL 100 MG TABLET PO SCH ×2 (08:12→16:40)
[2017-06-13] MEDS: NALTREXONE HCL 50 MG TABLET PO SCH (08:12)
[2017-06-13] MEDS: PANTOPRAZOLE SODIUM 40 MG DR TABLET PO SCH (08:12)
[2017-06-13] MEDS: LISINOPRIL 20 MG TABLET PO SCH (08:12)
[2017-06-13] MEDS: BACITRACIN 28.4 GM OINTMENT TP SCH (08:14)
[2017-06-13] MEDS: NICOTINE 21 MG/24 HOUR PATCH TD SCH (08:14)
[2017-06-13] MEDS: FLUTICASONE/SALMETEROL 250 MCG-50 MCG/INH DISKUS INHALER [28] IH SCH ×2 (09:10→20:10)
[2017-06-13 16:31] VITALS: BP 140/87
[2017-06-13 16:58] LABS: GLUCOMETER DEV NAME(LOC) BV2S; GLUCOSE,POINT OF CARE 150 MG/DL (70-110)
[2017-06-13] MEDS: INSULIN LISPRO 100 UNITS/ML SQ PRN (16:58)
[2017-06-13] MEDS: DIVALPROEX SODIUM 500 MG ER TABLET PO SCH (20:10)
[2017-06-14 06:26] VITALS: BP 136/69
[2017-06-14 06:33] LABS: GLUCOMETER DEV NAME(LOC) BV2S; GLUCOSE,POINT OF CARE 110 MG/DL (70-110)
[2017-06-14] MEDS: ZIPRASIDONE HCL 80 MG CAPSULE PO SCH ×2 (06:37→16:46)
[2017-06-14] MEDS: MetFORMIN HCL 500 MG TABLET PO SCH ×2 (06:37→16:46)
[2017-06-14 08:00] VITALS: BP 137/71
[2017-06-14] MEDS: FOLIC ACID 1 MG TABLET PO SCH (08:37)
[2017-06-14] MEDS: PANTOPRAZOLE SODIUM 40 MG DR TABLET PO SCH (08:37)
[2017-06-14] MEDS: NALTREXONE HCL 50 MG TABLET PO SCH (08:37)
[2017-06-14] MEDS: THIAMINE HCL 100 MG TABLET PO SCH ×2 (08:37→16:46)
[2017-06-14] MEDS: NICOTINE 21 MG/24 HOUR PATCH TD SCH (08:38)
[2017-06-14] MEDS: MULTIVITAMINS WITH MINERALS, THERAPEUTIC TABLET PO SCH (08:38)
[2017-06-14] MEDS: LISINOPRIL 20 MG TABLET PO SCH (08:38)
[2017-06-14] MEDS: BACITRACIN 28.4 GM OINTMENT TP SCH (08:39)
[2017-06-14] MEDS: FLUTICASONE/SALMETEROL 250 MCG-50 MCG/INH DISKUS INHALER [28] IH SCH ×2 (08:40→20:23)
[2017-06-14] MEDS: LORazepam 1 MG TABLET PO PRN (10:33)
[2017-06-14] MEDS ORDERED: OLANZapine 5 MG TABLET PO PRN (10:45)
[2017-06-14 16:07] VITALS: BP 137/82
[2017-06-14 16:32] LABS: GLUCOMETER DEV NAME(LOC) BV2S; GLUCOSE,POINT OF CARE 152 MG/DL (70-110)
[2017-06-14] MEDS ORDERED: DIVA500T52 PO (16:58)
[2017-06-14] MEDS ORDERED: NALT50TA PO (16:58)
[2017-06-14] MEDS ORDERED: ZIPR80CA2 PO ×2 (16:58→20:25)
[2017-06-14] MEDS: INSULIN LISPRO 100 UNITS/ML SQ PRN (17:00)
[2017-06-14] MEDS: DIVALPROEX SODIUM 500 MG ER TABLET PO SCH (20:23)
[2017-06-15] MEDS: LORazepam 1 MG TABLET PO PRN ×2 (00:18→06:54)
[2017-06-15 06:28] LABS: GLUCOMETER DEV NAME(LOC) BV2S; GLUCOSE,POINT OF CARE 117 MG/DL (70-110)
[2017-06-15 06:48] VITALS: BP 152/74
[2017-06-15] MEDS: MetFORMIN HCL 500 MG TABLET PO SCH ×2 (06:55→17:02)
[2017-06-15] MEDS: ZIPRASIDONE HCL 80 MG CAPSULE PO SCH ×2 (06:55→17:02)
[2017-06-15 07:27] VITALS: BP 151/68
[2017-06-15 08:28] VITALS: BP 132/77
[2017-06-15] MEDS: MULTIVITAMINS WITH MINERALS, THERAPEUTIC TABLET PO SCH (08:45)
[2017-06-15] MEDS: PANTOPRAZOLE SODIUM 40 MG DR TABLET PO SCH (08:45)
[2017-06-15] MEDS: LISINOPRIL 20 MG TABLET PO SCH (08:45)
[2017-06-15] MEDS: FOLIC ACID 1 MG TABLET PO SCH (08:45)
[2017-06-15] MEDS: THIAMINE HCL 100 MG TABLET PO SCH ×2 (08:45→17:02)
[2017-06-15] MEDS: NALTREXONE HCL 50 MG TABLET PO SCH (08:45)
[2017-06-15] MEDS: FLUTICASONE/SALMETEROL 250 MCG-50 MCG/INH DISKUS INHALER [28] IH SCH (08:46)
[2017-06-15] MEDS: NICOTINE 21 MG/24 HOUR PATCH TD SCH (08:46)
[2017-06-15] MEDS: BACITRACIN 28.4 GM OINTMENT TP SCH (08:47)
[2017-06-15 16:32] VITALS: BP 143/77
[2017-06-15] MEDS: INSULIN LISPRO 100 UNITS/ML SQ PRN (16:46)
[2017-06-15 16:47] LABS: GLUCOMETER DEV NAME(LOC) BV2S; GLUCOSE,POINT OF CARE 192 MG/DL (70-110)
[2017-06-15] MEDS: ACETAMINOPHEN 325 MG TABLET PO PRN (16:58)
== END 2017-06-15 19:06 | disposition home or self-care (01) | DRG 885 ==
LOC: EMS 16:08 → B2X 18:30
PROVIDERS: ADMIT Psychiatry & Neurology Psychiatry; ATTEND Psychiatry & Neurology Psychiatry
DX: F25.0 Schizoaffective disorder, bipolar type (principal); E11.9 Type 2 diabetes mellitus without complications; R45.851 Suicidal ideations; F43.10 Post-traumatic stress disorder, unspecified; I10 Essential (primary) hypertension; F17.210 Nicotine dependence, cigarettes, uncomplicated; J44.9 Chronic obstructive pulmonary disease, unspecified; K21.9 Gastro-esophageal reflux disease without esophagitis; R32 Unspecified urinary incontinence; Z91.14 Patient's other noncompliance with medication regimen; Z88.5 Allergy status to narcotic agent; Z79.899 Other long term (current) drug therapy
CPT/HCPCS: 82962; 96372; 99285; G0480; J1200; J2060; J3535

== ENCOUNTER 2017-09-12 21:57 | Inpatient (IN) | payer MEDICARE, SELFPAY ==
[~2017-09-12] VITALS: Ht 154.9 cm; Wt 74.5 kg
[~2017-09-12 21:57] MED LIST changes: -ADV250 IH; -METF500T4 PO; +METF500T6 PO; -SOLI10TA PO; -ZIPR40CA2 PO; +ZIPR80CA2 PO
[2017-09-12] MEDS ORDERED: ARIP400S3 IM (22:35)
[2017-09-12] MEDS ORDERED: SOLI5 PO (22:35)
[2017-09-12 22:38] LABS: GLUCOSE,POINT OF CARE 123 MG/DL (70-110)
[2017-09-12 23:14] LABS: BASOPHILS % (AUTO) 0.8 % (0.0-2.0); EOSINOPHILS % (AUTO) 0.3 % (1.0-6.0); HEMATOCRIT 41.3 % (36-46); HEMOGLOBIN 14.5 g/dL (12.0-16.0); LYMPHOCYTES # (AUTO) 3.3 K/uL (1.0-4.8); LYMPHOCYTES % (AUTO) 24.7 % (22.0-44.0); MEAN CORPUSCULAR HGB CONC 35.1 G/dL (31.0-37.0); MEAN CORPUSCULAR VOLUME 91 fL (80-100); MONOCYTES % (AUTO) 7.6 % (2.0-9.0); NEUTROPHILS % (AUTO) 66.6 % (40.0-70.0); PLATELET COUNT (AUTO) 325 K/uL (150-450); RED BLOOD CELL COUNT(AUTO) 4.52 MIL/uL (4.00-5.20); RED CELL DISTRIBUTION WIDTH 13.9 % (11.5-14.5)
[2017-09-12 23:22] LABS: ANION GAP 7 mmol/L (8-16); CALCIUM, TOTAL 9.7 mg/dL (8.8-10.5); CARBON DIOXIDE 30 mmol/L (22-29); CHLORIDE 95 mmol/L (98-107); CREATININE 1.02 mg/dL (0.60-1.30); GLOMERULAR FILTR. RATE CALC 57 mL/min (>60); GLUCOSE,RANDOM 131 mg/dL (70-110); POTASSIUM 3.7 mmol/L (3.5-5.1); SODIUM SERUM 132 mmol/L (136-145); UREA NITROGEN, BLOOD 14 mg/dL (7-18)
[2017-09-12 23:28] LABS: ALANINE AMINOTRANSFERASE 37 U/L (12-78); ALBUMIN 4.2 g/dL (3.4-5.0); ALKALINE PHOSPHATASE 109 U/L (46-116); ASPARTATE AMINOTRANSFERASE 21 U/L (15-37); BILIRUBIN,TOTAL 0.5 mg/dL (0.1-1.0); TOTAL PROTEIN, SERUM 8.9 g/dL (6.4-8.2)
[2017-09-12 23:45] LABS: AMPHET/METH SCREEN,URINE POSITIVE (NEGATIVE); BARBITURATE SCREEN, URINE NEGATIVE (NEGATIVE); BENZODIAZEPINES SCREEN,URINE NEGATIVE (NEGATIVE); CANNABINOID SCREEN,URINE NEGATIVE (NEGATIVE); COCAINE SCREEN,URINE NEGATIVE (NEGATIVE); METHADONE SCREEN, URINE NEGATIVE (NEGATIVE); OPIATE SCREEN,URINE NEGATIVE (NEGATIVE); PHENCYCLIDINE SCREEN,URINE NEGATIVE (NEGATIVE)
[2017-09-13 04:22] LABS: CHOL/HDL RATIO 3.3 (3.9-5.7); CHOLESTEROL 186 mg/dL (131-200); HDL CHOLESTEROL 56 mg/dL (40-60); LDL CHOL (CALC.) 116 mg/dL (0-130); TRIGLYCERIDES 70 mg/dL (15-150); VALPROIC ACID 54 mcg/mL (50-100)
[2017-09-13] MEDS: LORazepam 2 MG TABLET PO PRN ×2 (05:07→16:15)
[2017-09-13] MEDS: HALOPERIDOL 5 MG TABLET PO PRN ×2 (05:07→16:15)
[2017-09-13 10:34] LABS: GLUCOMETER DEV NAME(LOC) BV3S 2; GLUCOSE,POINT OF CARE 120 MG/DL (70-110)
[2017-09-13 10:57] VITALS: BP 132/73
[2017-09-13] MEDS ORDERED: ONDANSETRON HCL 4 MG TABLET PO PRN (11:00)
[2017-09-13] MEDS ORDERED: ACETAMINOPHEN 325 MG TABLET PO PRN ×2 (11:00→16:15)
[2017-09-13] MEDS ORDERED: PETROLATUM,WHITE 71 GM JELLY TP PRN (11:00)
[2017-09-13] MEDS ORDERED: MAG HYDROX/AL HYDROX/SIMETH ES 30 ML SUSPENSION UDCUP PO PRN ×2 (11:00→16:15)
[2017-09-13] MEDS ORDERED: CloNIDine HCL 0.1 MG TABLET PO PRN (11:00)
[2017-09-13] MEDS ORDERED: MAGNESIUM HYDROXIDE SUSPENSION 30 ML UDCUP PO PRN ×2 (11:00→16:15)
[2017-09-13] MEDS ORDERED: IBUPROFEN 400 MG TABLET PO PRN (11:00)
[2017-09-13] MEDS ORDERED: DOCUSATE SODIUM 100 MG CAPSULE PO PRN (11:00)
[2017-09-13] MEDS ORDERED: LOPERAMIDE HCL 2 MG CAPSULE PO PRN ×2 (11:00→16:15)
[2017-09-13] MEDS ORDERED: ALBUTEROL SULFATE HFA 90 MCG/PUFF 8 GM INHALER IH PRN (11:00)
[2017-09-13] MEDS: NICOTINE 14 MG/24 HOUR PATCH TD SCH (12:23)
[2017-09-13 16:07] VITALS: BP 127/88
[2017-09-13] MEDS ORDERED: ARIPiprazole ER SUSPENSION 400 MG PRE-FILLED DUAL CHAMBER SYRINGE IM ONE (16:15)
[2017-09-13] MEDS: LISINOPRIL 20 MG TABLET PO SCH (16:15)
[2017-09-13] MEDS ORDERED: PROMETHAZINE HCL 25 MG TABLET PO PRN (16:15)
[2017-09-13] MEDS: MetFORMIN HCL 500 MG TABLET PO SCH (16:15)
[2017-09-13] MEDS ORDERED: GuaiFENesin/D-METHORPHAN [SUGAR-FREE] 200-20MG/10 ML SYRUP UDCUP PO PRN (16:15)
[2017-09-13] MEDS ORDERED: HydrOXYzine PAMOATE 50 MG CAPSULE PO PRN (16:15)
[2017-09-13 16:44] LABS: GLUCOMETER DEV NAME(LOC) BV3S 2; GLUCOSE,POINT OF CARE 163 MG/DL (70-110)
[2017-09-13] MEDS: BACITRACIN 28.4 GM OINTMENT TP SCH (17:48)
[2017-09-13] MEDS: THIAMINE HCL 100 MG TABLET PO SCH (17:51)
[2017-09-13] MEDS: ARIPiprazole 15 MG TABLET PO SCH (21:00)
[2017-09-13] MEDS: DIVALPROEX SODIUM 500 MG ER TABLET PO SCH (21:00)
[2017-09-13 21:13] LABS: GLUCOMETER DEV NAME(LOC) BV3S 2; GLUCOSE,POINT OF CARE 185 MG/DL (70-110)
[2017-09-14 04:44] VITALS: BP 138/78
[2017-09-14 06:18] LABS: GLUCOMETER DEV NAME(LOC) BV3S 2; GLUCOSE,POINT OF CARE 150 MG/DL (70-110)
[2017-09-14] MEDS: MetFORMIN HCL 500 MG TABLET PO SCH ×3 (06:25→17:59)
[2017-09-14 08:36] LABS: HEMOGLOBIN A1C 7.1 % (4.5-6.2)
[2017-09-14 08:54] LABS: THYROID STIMULATING HORMONE 1.49 uIU/mL (0.36-3.74)
[2017-09-14] MEDS: BACITRACIN 28.4 GM OINTMENT TP SCH ×3 (09:05→17:59)
[2017-09-14] MEDS: FOLIC ACID 1 MG TABLET PO SCH (09:05)
[2017-09-14] MEDS: NALTREXONE HCL 50 MG TABLET PO SCH (09:05)
[2017-09-14] MEDS: MULTIVITAMINS WITH MINERALS, THERAPEUTIC TABLET PO SCH (09:05)
[2017-09-14] MEDS: THIAMINE HCL 100 MG TABLET PO SCH ×3 (09:06→17:59)
[2017-09-14] MEDS: LISINOPRIL 20 MG TABLET PO SCH ×3 (09:06→17:59)
[2017-09-14] MEDS: NICOTINE 14 MG/24 HOUR PATCH TD SCH (09:06)
[2017-09-14] MEDS: SOLIFENACIN SUCCINATE 5 MG TABLET PO SCH (09:06)
[2017-09-14] MEDS: LORazepam 2 MG TABLET PO PRN ×2 (09:07→18:02)
[2017-09-14] MEDS ORDERED: DiphenhydrAMINE HCL 50 MG/ML VIAL ONE (10:39)
[2017-09-14] MEDS ORDERED: LORazepam 2 MG/ML VIAL ONE (10:39)
[2017-09-14] MEDS ORDERED: HALOPERIDOL LACTATE 5 MG/ML VIAL ONE (10:39)
[2017-09-14] MEDS ORDERED: HALOPERIDOL LACTATE 5 MG/ML VIAL IM ONE (10:45)
[2017-09-14] MEDS ORDERED: LORazepam 2 MG/ML VIAL IM ONE (10:45)
[2017-09-14] MEDS ORDERED: DiphenhydrAMINE HCL 50 MG/ML VIAL IM ONE (10:45)
[2017-09-14 11:44] LABS: GLUCOMETER DEV NAME(LOC) BV3S 2; GLUCOSE,POINT OF CARE 189 MG/DL (70-110)
[2017-09-14 16:15] VITALS: BP 130/71
[2017-09-14 18:14] LABS: GLUCOMETER DEV NAME(LOC) BV3S 2; GLUCOSE,POINT OF CARE 131 MG/DL (70-110)
[2017-09-14] MEDS: ARIPiprazole 15 MG TABLET PO SCH (21:00)
[2017-09-14] MEDS: DIVALPROEX SODIUM 500 MG ER TABLET PO SCH (21:00)
[2017-09-15 01:10] VITALS: BP 125/76
[2017-09-15] MEDS: ZOLPIDEM TARTRATE 10 MG TABLET PO PRN ×2 (01:12→20:37)
[2017-09-15 06:38] LABS: GLUCOMETER DEV NAME(LOC) BV3S 2; GLUCOSE,POINT OF CARE 147 MG/DL (70-110)
[2017-09-15] MEDS: MetFORMIN HCL 500 MG TABLET PO SCH ×2 (06:39→16:41)
[2017-09-15 08:21] VITALS: BP 154/96
[2017-09-15] MEDS: THIAMINE HCL 100 MG TABLET PO SCH ×2 (09:07→16:41)
[2017-09-15] MEDS: MULTIVITAMINS WITH MINERALS, THERAPEUTIC TABLET PO SCH (09:07)
[2017-09-15] MEDS: LISINOPRIL 20 MG TABLET PO SCH ×2 (09:07→16:41)
[2017-09-15] MEDS: NALTREXONE HCL 50 MG TABLET PO SCH (09:07)
[2017-09-15] MEDS: FOLIC ACID 1 MG TABLET PO SCH (09:07)
[2017-09-15] MEDS: SOLIFENACIN SUCCINATE 5 MG TABLET PO SCH (09:07)
[2017-09-15] MEDS: NICOTINE 14 MG/24 HOUR PATCH TD SCH (09:08)
[2017-09-15] MEDS: BACITRACIN 28.4 GM OINTMENT TP SCH ×2 (09:08→16:41)
[2017-09-15 12:28] LABS: GLUCOMETER DEV NAME(LOC) BV3S 2; GLUCOSE,POINT OF CARE 174 MG/DL (70-110)
[2017-09-15 12:33] VITALS: BP 152/92
[2017-09-15] MEDS: LORazepam 2 MG TABLET PO PRN ×2 (12:36→22:54)
[2017-09-15] MEDS ORDERED: LISINOPRIL 5 MG TABLET PO ONE ×2 (13:15→13:45)
[2017-09-15 14:24] VITALS: BP 154/86
[2017-09-15 16:05] VITALS: BP 131/78
[2017-09-15 16:18] LABS: GLUCOMETER DEV NAME(LOC) BV3S 2; GLUCOSE,POINT OF CARE 152 MG/DL (70-110)
[2017-09-15 20:18] LABS: GLUCOMETER DEV NAME(LOC) BV3S 2; GLUCOSE,POINT OF CARE 196 MG/DL (70-110)
[2017-09-15] MEDS: DIVALPROEX SODIUM 500 MG ER TABLET PO SCH (20:37)
[2017-09-15] MEDS: ARIPiprazole 15 MG TABLET PO SCH (20:37)
[2017-09-16 05:12] VITALS: BP 137/73
[2017-09-16 07:14] LABS: GLUCOMETER DEV NAME(LOC) BV3S 2; GLUCOSE,POINT OF CARE 124 MG/DL (70-110)
[2017-09-16] MEDS: MetFORMIN HCL 500 MG TABLET PO SCH ×2 (07:15→16:46)
[2017-09-16 08:09] LABS: BASOPHILS % (AUTO) 0.5 % (0.0-2.0); EOSINOPHILS % (AUTO) 1.5 % (1.0-6.0); HEMATOCRIT 38.2 % (36-46); HEMOGLOBIN 13.3 g/dL (12.0-16.0); LYMPHOCYTES # (AUTO) 4.5 K/uL (1.0-4.8); LYMPHOCYTES % (AUTO) 53.5 % (22.0-44.0); MEAN CORPUSCULAR HEMOGLOBIN 32.1 pg (26.0-34.0); MEAN CORPUSCULAR HGB CONC 34.7 G/dL (31.0-37.0); MEAN CORPUSCULAR VOLUME 92 fL (80-100); MONOCYTES # (AUTO) 0.5 K/uL (0.1-1.0); MONOCYTES % (AUTO) 5.7 % (2.0-9.0); NEUTROPHILS # (AUTO) 3.3 K/uL (1.8-7.7); NEUTROPHILS % (AUTO) 38.8 % (40.0-70.0); PLATELET COUNT (AUTO) 268 K/uL (150-450); RED BLOOD CELL COUNT(AUTO) 4.14 MIL/uL (4.00-5.20); RED CELL DISTRIBUTION WIDTH 13.4 % (11.5-14.5)
[2017-09-16 08:12] VITALS: BP 157/89
[2017-09-16] MEDS: NALTREXONE HCL 50 MG TABLET PO SCH (08:14)
[2017-09-16] MEDS: FOLIC ACID 1 MG TABLET PO SCH (08:14)
[2017-09-16] MEDS: THIAMINE HCL 100 MG TABLET PO SCH ×2 (08:14→16:46)
[2017-09-16] MEDS: LISINOPRIL 20 MG TABLET PO SCH ×2 (08:14→16:46)
[2017-09-16] MEDS: MULTIVITAMINS WITH MINERALS, THERAPEUTIC TABLET PO SCH (08:14)
[2017-09-16] MEDS: LORazepam 2 MG TABLET PO PRN ×2 (08:15→17:54)
[2017-09-16] MEDS: SOLIFENACIN SUCCINATE 5 MG TABLET PO SCH (08:15)
[2017-09-16] MEDS: NICOTINE 14 MG/24 HOUR PATCH TD SCH (08:16)
[2017-09-16] MEDS: BACITRACIN 28.4 GM OINTMENT TP SCH ×2 (08:17→17:08)
[2017-09-16 11:44] LABS: GLUCOMETER DEV NAME(LOC) BV3S 2; GLUCOSE,POINT OF CARE 142 MG/DL (70-110)
[2017-09-16 13:30] VITALS: BP 144/81
[2017-09-16 16:09] VITALS: BP 154/87
[2017-09-16 16:44] LABS: GLUCOMETER DEV NAME(LOC) BV3S 2; GLUCOSE,POINT OF CARE 170 MG/DL (70-110)
[2017-09-16] MEDS ORDERED: PHENYLEPHRINE HCL 0.25% 15 ML NASAL SPRAY NASAL PRN (18:15)
[2017-09-16] MEDS: ARIPiprazole 15 MG TABLET PO SCH (20:07)
[2017-09-16] MEDS: DIVALPROEX SODIUM 500 MG ER TABLET PO SCH (20:08)
[2017-09-16 20:11] VITALS: BP 151/76
[2017-09-16] MEDS ORDERED: AmLODIPine BESYLATE 5 MG TABLET PO SCH (20:15)
[2017-09-16 20:54] LABS: GLUCOMETER DEV NAME(LOC) BV3S 2; GLUCOSE,POINT OF CARE 238 MG/DL (70-110)
[2017-09-17 02:52] VITALS: BP 140/90
[2017-09-17 06:23] LABS: GLUCOMETER DEV NAME(LOC) BV3S 2; GLUCOSE,POINT OF CARE 134 MG/DL (70-110)
[2017-09-17] MEDS: MetFORMIN HCL 500 MG TABLET PO SCH ×2 (06:28→17:18)
[2017-09-17 08:42] VITALS: BP 148/80
[2017-09-17] MEDS: NICOTINE 14 MG/24 HOUR PATCH TD SCH (09:00)
[2017-09-17] MEDS: FOLIC ACID 1 MG TABLET PO SCH (09:00)
[2017-09-17] MEDS ORDERED: AmLODIPine BESYLATE 5 MG TABLET PO SCH (09:00)
[2017-09-17] MEDS: THIAMINE HCL 100 MG TABLET PO SCH ×2 (09:00→17:19)
[2017-09-17] MEDS: LISINOPRIL 20 MG TABLET PO SCH ×2 (09:00→17:18)
[2017-09-17] MEDS: MULTIVITAMINS WITH MINERALS, THERAPEUTIC TABLET PO SCH (09:00)
[2017-09-17] MEDS: NALTREXONE HCL 50 MG TABLET PO SCH (09:00)
[2017-09-17] MEDS: BACITRACIN 28.4 GM OINTMENT TP SCH ×2 (09:01→17:18)
[2017-09-17] MEDS: SOLIFENACIN SUCCINATE 5 MG TABLET PO SCH (09:07)
[2017-09-17 11:49] LABS: GLUCOMETER DEV NAME(LOC) BV3S 2; GLUCOSE,POINT OF CARE 153 MG/DL (70-110)
[2017-09-17] MEDS ORDERED: DIVA500T52 PO (16:23)
[2017-09-17] MEDS ORDERED: ARIP400S3 IM (16:23)
[2017-09-17] MEDS ORDERED: NALT50TA PO (16:23)
[2017-09-17 16:52] VITALS: BP 152/77
[2017-09-17] MEDS ORDERED: METF500T6 PO (17:02)
[2017-09-17] MEDS ORDERED: THIA100T67 PO (17:02)
[2017-09-17] MEDS ORDERED: AMLO-511 PO (17:03)
[2017-09-17] MEDS ORDERED: FOLI1 PO (17:03)
[2017-09-17 17:26] LABS: GLUCOMETER DEV NAME(LOC) BV3S 2; GLUCOSE,POINT OF CARE 183 MG/DL (70-110)
[2017-10-11] MEDS ORDERED: ARIPiprazole ER SUSPENSION 400 MG PRE-FILLED DUAL CHAMBER SYRINGE IM SCH (09:00)
== END 2017-09-17 19:00 | disposition home or self-care (01) | DRG 885 ==
LOC: EMS 22:00 → B3A 09-13 04:13
PROVIDERS: ADMIT Psychiatry & Neurology Psychiatry; ATTEND Psychiatry & Neurology Psychiatry
DX: F20.0 Paranoid schizophrenia (principal); E87.1 Hypo-osmolality and hyponatremia; F17.200 Nicotine dependence, unspecified, uncomplicated; I10 Essential (primary) hypertension; E11.9 Type 2 diabetes mellitus without complications; R32 Unspecified urinary incontinence; D72.829 Elevated white blood cell count, unspecified; F99 Mental disorder, not otherwise specified; K21.9 Gastro-esophageal reflux disease without esophagitis; F31.9 Bipolar disorder, unspecified; F43.10 Post-traumatic stress disorder, unspecified; Z91.19 Patient's noncompliance with other medical treatment and regimen; Z88.8 Allergy status to other drugs, medicaments and biological substances
CPT/HCPCS: 83036; 84443; 87081; 99285; G0480; J0401; J1200; J1630; J2060

== ENCOUNTER 2017-09-20 13:31 | Inpatient (IN) | payer MEDICARE ==
[~2017-09-20] VITALS: Ht 154.9 cm; Wt 73.0 kg
[~2017-09-20 13:31] MED LIST changes: +AMLO-511 PO; +ARIP400S3 IM; +FOLI1 PO; -PANT40TA25 PO; +SOLI5 PO; +THIA100T67 PO; -ZIPR80CA2 PO
[2017-09-20 16:13] LABS: BASOPHILS % (AUTO) 0.6 % (0.0-2.0); EOSINOPHILS % (AUTO) 1.1 % (1.0-6.0); HEMATOCRIT 39.8 % (36-46); HEMOGLOBIN 13.9 g/dL (12.0-16.0); LYMPHOCYTES # (AUTO) 2.8 K/uL (1.0-4.8); LYMPHOCYTES % (AUTO) 27.7 % (22.0-44.0); MEAN CORPUSCULAR HEMOGLOBIN 31.8 pg (26.0-34.0); MEAN CORPUSCULAR HGB CONC 34.8 G/dL (31.0-37.0); MEAN CORPUSCULAR VOLUME 91 fL (80-100); MONOCYTES # (AUTO) 0.9 K/uL (0.1-1.0); MONOCYTES % (AUTO) 8.7 % (2.0-9.0); NEUTROPHILS # (AUTO) 6.3 K/uL (1.8-7.7); NEUTROPHILS % (AUTO) 61.9 % (40.0-70.0); PLATELET COUNT (AUTO) 286 K/uL (150-450); RED BLOOD CELL COUNT(AUTO) 4.36 MIL/uL (4.00-5.20); RED CELL DISTRIBUTION WIDTH 13.9 % (11.5-14.5)
[2017-09-20 16:21] LABS: ANION GAP 9 mmol/L (8-16); CALCIUM, TOTAL 8.9 mg/dL (8.8-10.5); CARBON DIOXIDE 26 mmol/L (22-29); CHLORIDE 101 mmol/L (98-107); CREATININE 1.06 mg/dL (0.60-1.30); GLOMERULAR FILTR. RATE CALC 54 mL/min (>60); GLUCOSE,RANDOM 110 mg/dL (70-110); POTASSIUM 3.7 mmol/L (3.5-5.1); SODIUM SERUM 136 mmol/L (136-145); UREA NITROGEN, BLOOD 31 mg/dL (7-18)
[2017-09-20 16:25] LABS: AMPHET/METH SCREEN,URINE POSITIVE (NEGATIVE); BARBITURATE SCREEN, URINE NEGATIVE (NEGATIVE); BENZODIAZEPINES SCREEN,URINE NEGATIVE (NEGATIVE); CANNABINOID SCREEN,URINE NEGATIVE (NEGATIVE); COCAINE SCREEN,URINE NEGATIVE (NEGATIVE); METHADONE SCREEN, URINE NEGATIVE (NEGATIVE); OPIATE SCREEN,URINE NEGATIVE (NEGATIVE); PHENCYCLIDINE SCREEN,URINE NEGATIVE (NEGATIVE)
[2017-09-20 16:36] LABS: ALANINE AMINOTRANSFERASE 25 U/L (12-78); ALBUMIN 3.5 g/dL (3.4-5.0); ALKALINE PHOSPHATASE 94 U/L (46-116); ASPARTATE AMINOTRANSFERASE 17 U/L (15-37); BILIRUBIN,TOTAL 0.8 mg/dL (0.1-1.0); THYROID STIMULATING HORMONE 1.49 uIU/mL (0.36-3.74); VALPROIC ACID 66 mcg/mL (50-100)
[2017-09-20 17:25] LABS: APPEARANCE,URINE CLOUDY (CLEAR); GLUCOSE, URINE (UA) NEGATIVE (NEGATIVE); KETONES,URINE TRACE mg/dL (NEGATIVE); LEUKOCYTE ESTERASE ,URINE SMALL (NEGATIVE); NITRATE,URINE NEGATIVE (NEGATIVE); OCCULT BLOOD,URINE NEGATIVE (NEGATIVE); PH,URINE 5.5 (5.0-8.0); PROTEIN,URINE POS 1+ (NEGATIVE); UROBILINOGEN,URINE 0.2 mg/dL (<=1.0)
[2017-09-20 17:27] LABS: BILIRUBIN,URINE PRELIM. POSITIVE (NEGATIVE)
[2017-09-20 17:43] LABS: BACTERIA,URINE Moderate /HPF (None Seen); RBC,URINE None Seen /HPF (0-2); SQUAMOUS EPITHELIAL CELL,UR Moderate /LPF (None Seen)
[2017-09-20 17:44] LABS: MUCUS,URINE Few LPF (None Seen)
[2017-09-20] MEDS ORDERED: HALOPERIDOL 5 MG TABLET PO PRN (19:45)
[2017-09-20] MEDS: LORazepam 2 MG TABLET PO PRN (23:12)
[2017-09-21 01:48] VITALS: BP 108/64
[2017-09-21 06:19] LABS: GLUCOMETER DEV NAME(LOC) BV2N3; GLUCOSE,POINT OF CARE 109 MG/DL (70-110)
[2017-09-21] MEDS ORDERED: ACETAMINOPHEN 325 MG TABLET PO PRN ×2 (07:00→16:15)
[2017-09-21] MEDS ORDERED: CloNIDine HCL 0.1 MG TABLET PO PRN (07:00)
[2017-09-21] MEDS ORDERED: PETROLATUM,WHITE 71 GM JELLY TP PRN (07:00)
[2017-09-21] MEDS ORDERED: ALBUTEROL SULFATE HFA 90 MCG/PUFF 8 GM INHALER IH PRN (07:00)
[2017-09-21] MEDS ORDERED: LOPERAMIDE HCL 2 MG CAPSULE PO PRN ×2 (07:00→16:15)
[2017-09-21 08:47] VITALS: BP 115/63
[2017-09-21 09:33] LABS: CHOL/HDL RATIO 5.4 (3.9-5.7)
[2017-09-21] MEDS: NICOTINE 14 MG/24 HOUR PATCH TD SCH (09:54)
[2017-09-21 11:13] LABS: GLUCOMETER DEV NAME(LOC) BV2N3; GLUCOSE,POINT OF CARE 123 MG/DL (70-110)
[2017-09-21 12:18] VITALS: BP 114/66
[2017-09-21] MEDS: IBUPROFEN 400 MG TABLET PO PRN (12:18)
[2017-09-21 16:03] VITALS: BP 122/71
[2017-09-21] MEDS ORDERED: GuaiFENesin/D-METHORPHAN [SUGAR-FREE] 200-20MG/10 ML SYRUP UDCUP PO PRN (16:15)
[2017-09-21] MEDS ORDERED: PROMETHAZINE HCL 25 MG TABLET PO PRN (16:15)
[2017-09-21] MEDS ORDERED: OLANZapine 5 MG RAPDIS TABLET PO PRN (16:15)
[2017-09-21] MEDS ORDERED: HydrOXYzine PAMOATE 50 MG CAPSULE PO PRN (16:15)
[2017-09-21] MEDS ORDERED: MAG HYDROX/AL HYDROX/SIMETH ES 30 ML SUSPENSION UDCUP PO PRN (16:15)
[2017-09-21] MEDS ORDERED: MAGNESIUM HYDROXIDE SUSPENSION 30 ML UDCUP PO PRN (16:15)
[2017-09-21 16:18] LABS: GLUCOMETER DEV NAME(LOC) BV2N3; GLUCOSE,POINT OF CARE 131 MG/DL (70-110)
[2017-09-21] MEDS: THIAMINE HCL 100 MG TABLET PO SCH (16:37)
[2017-09-21] MEDS: LISINOPRIL 20 MG TABLET PO SCH (17:12)
[2017-09-21 20:29] LABS: GLUCOMETER DEV NAME(LOC) BV2N3; GLUCOSE,POINT OF CARE 182 MG/DL (70-110)
[2017-09-21] MEDS: OLANZapine 5 MG RAPDIS TABLET PO SCH (20:31)
[2017-09-21] MEDS: DIVALPROEX SODIUM 500 MG ER TABLET PO SCH (20:31)
[2017-09-22 06:43] LABS: GLUCOMETER DEV NAME(LOC) BV2N3; GLUCOSE,POINT OF CARE 154 MG/DL (70-110)
[2017-09-22] MEDS: MetFORMIN HCL 500 MG TABLET PO SCH ×2 (07:02→16:29)
[2017-09-22 07:37] VITALS: BP 128/71
[2017-09-22 08:05] VITALS: BP 151/83
[2017-09-22] MEDS: THIAMINE HCL 100 MG TABLET PO SCH ×2 (08:06→16:29)
[2017-09-22] MEDS: FOLIC ACID 1 MG TABLET PO SCH (08:06)
[2017-09-22] MEDS: MULTIVITAMINS WITH MINERALS, THERAPEUTIC TABLET PO SCH (08:06)
[2017-09-22] MEDS: LISINOPRIL 20 MG TABLET PO SCH ×2 (08:06→16:28)
[2017-09-22] MEDS: NALTREXONE HCL 50 MG TABLET PO SCH (08:06)
[2017-09-22] MEDS: AmLODIPine BESYLATE 5 MG TABLET PO SCH (08:06)
[2017-09-22] MEDS: SOLIFENACIN SUCCINATE 5 MG TABLET PO SCH (08:07)
[2017-09-22] MEDS: NICOTINE 14 MG/24 HOUR PATCH TD SCH (08:09)
[2017-09-22] MEDS: CIPROFLOXACIN HCL 500 MG TABLET PO SCH ×2 (09:27→16:28)
[2017-09-22 09:30] VITALS: BP 126/67
[2017-09-22 11:03] LABS: GLUCOMETER DEV NAME(LOC) BV2N3; GLUCOSE,POINT OF CARE 114 MG/DL (70-110)
[2017-09-22 16:13] VITALS: BP 140/86
[2017-09-22 16:48] LABS: GLUCOMETER DEV NAME(LOC) BV2N3; GLUCOSE,POINT OF CARE 169 MG/DL (70-110)
[2017-09-22] MEDS: DIVALPROEX SODIUM 500 MG ER TABLET PO SCH (20:07)
[2017-09-22] MEDS: OLANZapine 5 MG RAPDIS TABLET PO SCH (20:08)
[2017-09-22] MEDS: LORazepam 2 MG TABLET PO PRN (20:09)
[2017-09-22 20:38] LABS: GLUCOMETER DEV NAME(LOC) BV2N3; GLUCOSE,POINT OF CARE 181 MG/DL (70-110)
[2017-09-23 02:06] VITALS: BP 143/82
[2017-09-23 06:23] LABS: GLUCOMETER DEV NAME(LOC) BV2N3; GLUCOSE,POINT OF CARE 160 MG/DL (70-110)
[2017-09-23] MEDS ORDERED: -PHARMACY VACCINE NOTE- MISC ONE (07:00)
[2017-09-23] MEDS: MetFORMIN HCL 500 MG TABLET PO SCH ×2 (07:05→16:44)
[2017-09-23 08:13] VITALS: BP 143/61
[2017-09-23] MEDS: MULTIVITAMINS WITH MINERALS, THERAPEUTIC TABLET PO SCH (08:38)
[2017-09-23] MEDS: LISINOPRIL 20 MG TABLET PO SCH ×2 (08:38→16:44)
[2017-09-23] MEDS: AmLODIPine BESYLATE 5 MG TABLET PO SCH (08:38)
[2017-09-23] MEDS: SOLIFENACIN SUCCINATE 5 MG TABLET PO SCH (08:38)
[2017-09-23] MEDS: NALTREXONE HCL 50 MG TABLET PO SCH (08:38)
[2017-09-23] MEDS: FOLIC ACID 1 MG TABLET PO SCH (08:38)
[2017-09-23] MEDS: CIPROFLOXACIN HCL 500 MG TABLET PO SCH ×2 (08:38→16:44)
[2017-09-23] MEDS: THIAMINE HCL 100 MG TABLET PO SCH ×2 (08:38→16:44)
[2017-09-23] MEDS: NICOTINE 14 MG/24 HOUR PATCH TD SCH (08:39)
[2017-09-23] MEDS: LORazepam 2 MG TABLET PO PRN (10:50)
[2017-09-23 11:18] LABS: GLUCOMETER DEV NAME(LOC) BV2N3; GLUCOSE,POINT OF CARE 139 MG/DL (70-110)
[2017-09-23 12:17] VITALS: BP 124/61
[2017-09-23] MEDS: IBUPROFEN 400 MG TABLET PO PRN (12:17)
[2017-09-23 16:06] VITALS: BP 134/81
[2017-09-23 16:54] LABS: GLUCOMETER DEV NAME(LOC) BV2N3; GLUCOSE,POINT OF CARE 118 MG/DL (70-110)
[2017-09-23] MEDS: DIVALPROEX SODIUM 500 MG ER TABLET PO SCH (20:30)
[2017-09-23] MEDS: OLANZapine 5 MG RAPDIS TABLET PO SCH (20:31)
[2017-09-23 20:49] LABS: GLUCOMETER DEV NAME(LOC) BV2N3; GLUCOSE,POINT OF CARE 192 MG/DL (70-110)
[2017-09-23] MEDS: ZOLPIDEM TARTRATE 10 MG TABLET PO PRN (21:35)
[2017-09-23] MEDS ORDERED: MOMETASONE FUROATE 50 MCG/SPRAY 17 GM NASAL SPRAY NASAL PRN (21:45)
[2017-09-24 05:47] VITALS: BP 130/82
[2017-09-24 06:25] LABS: GLUCOMETER DEV NAME(LOC) BV2N3; GLUCOSE,POINT OF CARE 120 MG/DL (70-110)
[2017-09-24] MEDS: MetFORMIN HCL 500 MG TABLET PO SCH ×2 (06:54→16:32)
[2017-09-24] MEDS: NALTREXONE HCL 50 MG TABLET PO SCH (08:26)
[2017-09-24] MEDS: MULTIVITAMINS WITH MINERALS, THERAPEUTIC TABLET PO SCH (08:26)
[2017-09-24] MEDS: LISINOPRIL 20 MG TABLET PO SCH ×2 (08:26→16:31)
[2017-09-24] MEDS: SOLIFENACIN SUCCINATE 5 MG TABLET PO SCH (08:26)
[2017-09-24] MEDS: CIPROFLOXACIN HCL 500 MG TABLET PO SCH ×2 (08:26→16:32)
[2017-09-24] MEDS: THIAMINE HCL 100 MG TABLET PO SCH ×2 (08:26→16:31)
[2017-09-24] MEDS: AmLODIPine BESYLATE 5 MG TABLET PO SCH (08:26)
[2017-09-24] MEDS: FOLIC ACID 1 MG TABLET PO SCH (08:26)
[2017-09-24] MEDS: NICOTINE 14 MG/24 HOUR PATCH TD SCH (08:27)
[2017-09-24 08:30] VITALS: BP 133/76
[2017-09-24 11:18] LABS: GLUCOMETER DEV NAME(LOC) BV2N3; GLUCOSE,POINT OF CARE 127 MG/DL (70-110)
[2017-09-24] MEDS: LORazepam 2 MG TABLET PO PRN ×2 (12:57→22:35)
[2017-09-24 16:12] VITALS: BP 140/77
[2017-09-24 16:24] LABS: GLUCOMETER DEV NAME(LOC) BV2N3; GLUCOSE,POINT OF CARE 166 MG/DL (70-110)
[2017-09-24 20:28] LABS: GLUCOMETER DEV NAME(LOC) BV2N3; GLUCOSE,POINT OF CARE 213 MG/DL (70-110)
[2017-09-24] MEDS: OLANZapine 5 MG RAPDIS TABLET PO SCH (20:40)
[2017-09-24] MEDS: DIVALPROEX SODIUM 500 MG ER TABLET PO SCH (20:41)
[2017-09-25 02:12] VITALS: BP 137/72
[2017-09-25 06:23] LABS: GLUCOMETER DEV NAME(LOC) BV2N3; GLUCOSE,POINT OF CARE 112 MG/DL (70-110)
[2017-09-25] MEDS: MetFORMIN HCL 500 MG TABLET PO SCH ×2 (06:39→16:18)
[2017-09-25] MEDS: NALTREXONE HCL 50 MG TABLET PO SCH (08:24)
[2017-09-25] MEDS: LISINOPRIL 20 MG TABLET PO SCH ×2 (08:24→16:18)
[2017-09-25] MEDS: FOLIC ACID 1 MG TABLET PO SCH (08:24)
[2017-09-25] MEDS: AmLODIPine BESYLATE 5 MG TABLET PO SCH (08:24)
[2017-09-25] MEDS: CIPROFLOXACIN HCL 500 MG TABLET PO SCH ×2 (08:24→16:18)
[2017-09-25] MEDS: SOLIFENACIN SUCCINATE 5 MG TABLET PO SCH (08:24)
[2017-09-25] MEDS: THIAMINE HCL 100 MG TABLET PO SCH ×2 (08:24→16:18)
[2017-09-25] MEDS: MULTIVITAMINS WITH MINERALS, THERAPEUTIC TABLET PO SCH (08:24)
[2017-09-25] MEDS: NICOTINE 14 MG/24 HOUR PATCH TD SCH (08:25)
[2017-09-25 08:26] VITALS: BP 121/73
[2017-09-25 11:08] LABS: GLUCOMETER DEV NAME(LOC) BV2N3; GLUCOSE,POINT OF CARE 144 MG/DL (70-110)
[2017-09-25] MEDS ORDERED: THIA100T92 PO (14:01)
[2017-09-25] MEDS ORDERED: CIPR-279 PO (14:01)
[2017-09-25] MEDS ORDERED: OLAN5TAB30 PO (14:19)
[2017-09-25] MEDS ORDERED: DIVA500T52 PO (14:19)
[2017-09-25] MEDS ORDERED: NALT50TA PO (14:19)
[2017-09-25 16:14] VITALS: BP 140/78
[2017-09-25 16:30] LABS: GLUCOMETER DEV NAME(LOC) BV2N3; GLUCOSE,POINT OF CARE 158 MG/DL (70-110)
[2017-09-25] MEDS: DIVALPROEX SODIUM 500 MG ER TABLET PO SCH (20:23)
[2017-09-25] MEDS: OLANZapine 5 MG RAPDIS TABLET PO SCH (20:25)
[2017-09-25 20:43] LABS: GLUCOMETER DEV NAME(LOC) BV2N3; GLUCOSE,POINT OF CARE 192 MG/DL (70-110)
[2017-09-25] MEDS: ZOLPIDEM TARTRATE 10 MG TABLET PO PRN (21:35)
[2017-09-26 01:03] VITALS: BP 138/72
[2017-09-26] MEDS: LORazepam 2 MG TABLET PO PRN (01:31)
[2017-09-26] MEDS ORDERED: NALT50TA6 PO (02:28)
[2017-09-26] MEDS ORDERED: DIVA500T52 PO (02:28)
[2017-09-26] MEDS ORDERED: MULT-248 PO (02:37)
[2017-09-26] MEDS ORDERED: SOLI5 PO (02:37)
[2017-09-26] MEDS ORDERED: OLAN7.5T2 PO (02:37)
[2017-09-26] MEDS ORDERED: AMLO-511 PO (02:37)
[2017-09-26] MEDS ORDERED: CIPR500S5 PO (02:37)
[2017-09-26] MEDS ORDERED: THIA100T67 PO (02:37)
[2017-09-26] MEDS ORDERED: LISI-662 PO (02:37)
[2017-09-26] MEDS ORDERED: FOLI1 PO (02:37)
[2017-09-26] MEDS ORDERED: METF500T6 PO (02:37)
[2017-09-26] MEDS: IBUPROFEN 400 MG TABLET PO PRN (05:22)
[2017-09-26 05:24] VITALS: BP 112/78
[2017-09-26 06:25] LABS: GLUCOMETER DEV NAME(LOC) BV2N3; GLUCOSE,POINT OF CARE 142 MG/DL (70-110)
[2017-09-26] MEDS: MetFORMIN HCL 500 MG TABLET PO SCH (07:02)
[2017-09-26 08:07] VITALS: BP 114/61
[2017-09-26] MEDS: CIPROFLOXACIN HCL 500 MG TABLET PO SCH (08:21)
[2017-09-26] MEDS: LISINOPRIL 20 MG TABLET PO SCH (08:21)
[2017-09-26] MEDS: FOLIC ACID 1 MG TABLET PO SCH (08:22)
[2017-09-26] MEDS: MULTIVITAMINS WITH MINERALS, THERAPEUTIC TABLET PO SCH (08:22)
[2017-09-26] MEDS: NALTREXONE HCL 50 MG TABLET PO SCH (08:22)
[2017-09-26] MEDS: THIAMINE HCL 100 MG TABLET PO SCH (08:22)
[2017-09-26] MEDS: NICOTINE 14 MG/24 HOUR PATCH TD SCH (08:22)
[2017-09-26] MEDS: AmLODIPine BESYLATE 5 MG TABLET PO SCH (08:22)
[2017-09-26] MEDS: SOLIFENACIN SUCCINATE 5 MG TABLET PO SCH (08:22)
[2017-09-26 11:03] LABS: GLUCOMETER DEV NAME(LOC) BV2N3; GLUCOSE,POINT OF CARE 135 MG/DL (70-110)
== END 2017-09-26 11:30 | disposition home or self-care (01) | DRG 885 ==
LOC: EMS 13:35 → B2X 21:12
PROVIDERS: ADMIT Psychiatry & Neurology Psychiatry; ATTEND Psychiatry & Neurology Psychiatry
DX: F25.9 Schizoaffective disorder, unspecified (principal); F31.9 Bipolar disorder, unspecified; F43.10 Post-traumatic stress disorder, unspecified; I10 Essential (primary) hypertension; K21.9 Gastro-esophageal reflux disease without esophagitis; R32 Unspecified urinary incontinence; F15.10 Other stimulant abuse, uncomplicated; S09.90XA Unspecified injury of head, initial encounter; E78.5 Hyperlipidemia, unspecified; E11.9 Type 2 diabetes mellitus without complications; F17.210 Nicotine dependence, cigarettes, uncomplicated; W01.0XXA Fall on same level from slipping, tripping and stumbling without subsequent striking against object, initial encounter; Y93.01 Activity, walking, marching and hiking; Z71.6 Tobacco abuse counseling; Z59.0 Homelessness; Z91.19 Patient's noncompliance with other medical treatment and regimen; Z79.899 Other long term (current) drug therapy; Y92.89 Other specified places as the place of occurrence of the external cause; Y99.8 Other external cause status
CPT/HCPCS: 70450; 84443; 87081; 87086; 93005; 99285; 99406; G0480

== ENCOUNTER → 2018-06-06 | Outpatient (CLI) | payer MEDICARE ==
[~2018-06-06] MED LIST changes: -ARIP400S3 IM; +CIPR500S5 PO; +METF-960 PO; -METF500T6 PO; +MULT-248 PO
== END | disposition home or self-care (01) ==
LOC: LABMN 11:40
PROVIDERS: ATTEND Psychiatry & Neurology Psychiatry
DX: F25.1 Schizoaffective disorder, depressive type (principal)